=== PATIENT | male | born 1975 | race Caucasian/White ===

== ENCOUNTER 2020-02-28 10:04 | Outpatient (REF) | payer BC, SELFPAY ==
[2020-02-28 14:33] LABS: Alanine Aminotransferase 40 U/L (0-40); Albumin Level 4.6 g/dL (3.5-5.0); Alkaline Phosphatase 58 U/L (39-117); Anion Gap 11 (12-20); Aspartate Amino Transferase 29 U/L (5-37); Bilirubin Total 0.6 mg/dL (0.0-1.0); Blood Urea Nitrogen 18 mg/dL (9-16); Calcium 9.2 mg/dL (8.4-10.2); Carbon Dioxide 30 mmol/L (22-29); Chloride 101 mmol/L (96-108); Cholesterol 227 mg/dL; Estimated Glomerular Filt Rate > 60; Glucose Fasting 96 mg/dL (60-99); HDL Cholesterol 41 mg/dL; LDL Cholesterol Calculated 170 mg/dl; Potassium 4.3 mmol/l (3.3-5.1); Sodium 138 mmol/L (135-145); Total Protein 6.9 g/dL (6.5-8.0); Triglycerides 84 mg/dL
== END 2020-02-28 10:05 | disposition home or self-care (01) ==
LOC: HO.10HDL 10:04
PROVIDERS: Visit Provider Family Medicine
DX: Z00.00 Encounter for general adult medical examination without abnormal findings (principal); E78.5 Hyperlipidemia, unspecified
CPT/HCPCS: 36415; 80053; 80061

== ENCOUNTER 2020-03-14 14:19 | Outpatient (REF) | payer BC, SELFPAY ==
[2020-03-14 15:20] LABS: Creatinine Urine 113.58 mg/dL; Microalbumin Urine < 5.0 mg/L
== END 2020-03-14 14:20 | disposition home or self-care (01) ==
LOC: HO.LNP 14:19
PROVIDERS: Visit Provider Family Medicine
DX: R73.03 Prediabetes (principal)
CPT/HCPCS: 82043

== ENCOUNTER 2020-11-30 10:59 | Outpatient (REF) | payer BC, SELFPAY ==
[2020-11-30 11:51] LABS: Alanine Aminotransferase 28 U/L (0-40); Albumin Level 4.5 g/dL (3.5-5.0); Alkaline Phosphatase 51 U/L (39-117); Anion Gap 11 (12-20); Aspartate Amino Transferase 27 U/L (5-37); Bilirubin Total 0.7 mg/dL (0.0-1.0); Blood Urea Nitrogen 12 mg/dL (9-16); Calcium 9.6 mg/dL (8.4-10.2); Carbon Dioxide 28 mmol/L (22-29); Chloride 103 mmol/L (96-108); Cholesterol 224 mg/dL; Estimated Glomerular Filt Rate > 60; Glucose Fasting 103 mg/dL (60-99); HDL Cholesterol 35 mg/dL; LDL Cholesterol Calculated 165 mg/dl; Potassium 4.6 mmol/L (3.3-5.1); Sodium 137 mmol/L (135-145); Total Protein 6.9 g/dL (6.5-8.0); Triglycerides 120 mg/dL
== END 2020-11-30 11:00 | disposition home or self-care (01) ==
LOC: HO.LAB 10:59
PROVIDERS: PCP Family Medicine; Visit Provider Family Medicine
DX: Z00.00 Encounter for general adult medical examination without abnormal findings (principal); E78.5 Hyperlipidemia, unspecified; R73.03 Prediabetes
CPT/HCPCS: 36415; 80053; 80061

== ENCOUNTER 2020-12-04 11:19 | Outpatient (REF) | payer BC, SELFPAY | END 2020-12-04 11:20 | disposition home or self-care (01) | LOC: HO.LAB 11:19 | PROVIDERS: Visit Provider Family Medicine | DX: Z13.89 Encounter for screening for other disorder (principal) ==

== ENCOUNTER 2021-03-04 08:59 | Outpatient (REF) | payer BC, SELFPAY ==
[2021-03-04 10:51] LABS: Estimated Average Glucose 120 mg/dL; Hemoglobin A1c % 5.8 %
[2021-03-04 10:59] LABS: Alanine Aminotransferase 32 U/L (0-40); Albumin Level 4.3 g/dL (3.5-5.0); Alkaline Phosphatase 66 U/L (39-117); Anion Gap 9 (12-20); Aspartate Amino Transferase 26 U/L (5-37); Bilirubin Total 0.8 mg/dL (0.0-1.0); Blood Urea Nitrogen 18 mg/dL (9-16); Calcium 9.9 mg/dL (8.4-10.2); Carbon Dioxide 29 mmol/L (22-29); Chloride 104 mmol/L (96-108); Cholesterol 126 mg/dL; Estimated Glomerular Filt Rate > 60; Glucose Fasting 112 mg/dL (60-99); HDL Cholesterol 38 mg/dL; LDL Cholesterol Calculated 80 mg/dl; Potassium 4.2 mmol/L (3.3-5.1); Sodium 138 mmol/L (135-145); Total Protein 6.9 g/dL (6.5-8.0); Triglycerides 41 mg/dL
[2021-03-04 11:19] LABS: Prostate Specific Antigen Scr 0.38 ng/mL (<0.05-4.0)
== END 2021-03-04 09:00 | disposition home or self-care (01) ==
LOC: HO.10HDL 08:59
PROVIDERS: Visit Provider Family Medicine
DX: Z00.00 Encounter for general adult medical examination without abnormal findings (principal); Z12.5 Encounter for screening for malignant neoplasm of prostate; R73.01 Impaired fasting glucose; R73.03 Prediabetes
CPT/HCPCS: 36415; 80053; 80061; 83036; 84153

== ENCOUNTER 2022-09-01 06:12 | Outpatient (REF) | payer OTHER, SELFPAY ==
[2022-09-01 07:27] LABS: Estimated Average Glucose 114 mg/dL; Hemoglobin A1c % 5.6 %
[2022-09-01 08:17] LABS: Alanine Aminotransferase 37 U/L (0-40); Albumin Level 4.4 g/dL (3.5-5.0); Alkaline Phosphatase 60 U/L (39-117); Anion Gap 14 (12-20); Aspartate Amino Transferase 29 U/L (5-37); Bilirubin Total 0.6 mg/dL (0.0-1.0); Blood Urea Nitrogen 14 mg/dL (9-16); Calcium 10.4 mg/dL (8.4-10.2); Carbon Dioxide 26 mmol/L (22-29); Chloride 103 mmol/L (96-108); Cholesterol 228 mg/dL; Estimated Glomerular Filt Rate > 60; Glucose Fasting 107 mg/dL (60-99); HDL Cholesterol 41 mg/dL; LDL Cholesterol Calculated 129 mg/dl; Potassium 4.3 mmol/L (3.3-5.1); Sodium 139 mmol/L (135-145); Total Protein 7.2 g/dL (6.5-8.0); Triglycerides 292 mg/dL
[2022-09-01 08:24] LABS: Prostate Specific Antigen Scr 0.53 ng/mL (<0.05-4.0)
[2022-09-01 08:34] LABS: TSH reflex Free T4 5.61 uIU/mL (0.32-4.0)
[2022-09-01 09:09] LABS: Free T4 (Free Thyroxine) 0.72 ng/dL (0.71-1.85)
[2022-09-01 09:13] LABS: Appearance Urine Clear; Color Urine Yellow; Glucose Urine UA Negative (Negative); Leukocyte Esterase Urine Negative (Negative); Nitrite Urine Negative (Negative); Urine Blood Negative (Negative); Urine Ketones Negative (Negative); Urine Protein Negative (Neg-Trace)
[2022-09-01 09:54] LABS: Creatinine Urine 171.66 mg/dL; Microalbum/Creatinine Ratio Ur 4.6 ug/mg cr
== END 2022-09-01 06:13 | disposition home or self-care (01) ==
LOC: HO.LAB 06:12
PROVIDERS: PCP Family Medicine; Visit Provider Family Medicine
DX: Z00.00 Encounter for general adult medical examination without abnormal findings (principal); Z12.5 Encounter for screening for malignant neoplasm of prostate; I10 Essential (primary) hypertension; R73.01 Impaired fasting glucose
CPT/HCPCS: 36415; 80053; 80061; 81003; 82043; 83036; 84153; 84439; 84443

== ENCOUNTER 2022-09-03 16:36 | Outpatient (AMB) | payer OTHER, SELFPAY ==
--- NOTE | 2022-09-03 16:31 | A.OFFPC_ITS ---
Intake Visit Reasons: f/u [facility]/[phone] Intake Note: Patient is following on blood work today. Allergies No Known Allergies Allergy (Verified 09/03/22 16:32) Tobacco use date assessed: 09/03/22 Dental Screening Dental Screen Date: 09/03/22 Did you have a dental visit in the last 12 months?: Yes Did you have a dental problem in the last 6 months where you did not have access to dental care?: No Was dental information given to patient?: No HPI f/u [facility]/[phone] HPI Details 47 y/o male presents to f/u [facility] via telemedicine. Labs were drawn 09/01/22. Reviewed labs with pt. Triglycerides 292. TC 228. LDL 128. HDL 41. He is on artovastatin 20mg daily. TSH elevated at 5.61. A1c 5.6%. Elevated calcium. 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 Dario Penn, Aniya Montero, Shelton Love and colleagues, with an educational nitesh from [employer]. Review of Systems Const Denies chills, Denies fatigue, Denies fever(s), Denies headache(s) and Denies weakness ENT Denies dizziness and Denies headache(s) Card Denies dyspnea Resp Denies cough, Denies dyspnea, Denies wheezing and Denies other (shortness of breath) Musc Denies numbness and Denies tingling Neuro Denies dizziness, Denies headache(s), Denies numbness, Denies tingling and Denies weakness Psych Denies anxiety and Denies depression Endo Denies fatigue Aller/Immun Denies wheezing Physical exam (Primary Care) Tobacco/Smoking Status: Tobacco use Status Tobacco use date assessed 09/03/22 09/03/22 16:35 Patient Tobacco Use Status Never used Tobacco 09/03/22 16:35 e-Cigarette/Vaping Use Never Used 09/03/22 16:35 Thrive Assessment: Date of Thrive Assessment Date Thrive assessed 12/04/20 09/03/22 16:35 Telehealth Telehealth Location of provider rendering services: practice address Location of patient: other Patient Identification confirmed using: Name, : Yes Telehealth method: voice only Patient verbally consented to treatment: Yes Patient verbally consented to billing insurance company: Yes Patient informed of any privacy concerns related to visit: Yes Minutes spent on Phone/Video with Pt.: 9 Assessment and Plan Assessment & Plan (1) Hyperlipidemia: Code(s): E78.5 - Hyperlipidemia, unspecified Plan: Had decreased his atorvastatin but HDL low and LDL has increased significantly with elevated triglycerides as well Concomitantly, his thyroid hormone levels appear off Patient notes that his diet has been rather poor lately He will repeat his lipids in 6 weeks while he works on lifestyle changes (2) Prediabetes: Code(s): R73.03 - Prediabetes Plan: A1c 5.5% which is still near top normal range He will continue to work on lifestyle changes (3) Elevated TSH: Code(s): R79.89 - Other specified abnormal findings of blood chemistry Plan: TSH is high Will repeat this in about 6 weeks (4) Hypercalcemia: Code(s): E83.52 - Hypercalcemia Plan: Mildly elevated and will repeat Orders: Orders Basic Metabolic Panel Fasting Today E78.5 - Hyperlipidemia, unspecified Lipid Panel Today E78.5 - Hyperlipidemia, unspecified, Z00.00 - Encounter for general adult medical examination without abnormal findings Triiodothyronine T3 Total Today E03.9 - Hypothyroidism, unspecified, R79.89 - Other specified abnormal findings of blood chemistry Free T4 (Free Thyroxine) Today E03.9 - Hypothyroidism, unspecified, R79.89 - Other specified abnormal findings of blood chemistry Thyroid Stimulating Hormone Today E03.9 - Hypothyroidism, unspecified, R79.89 - Other specified abnormal findings of blood chemistry Coding Level of Care Code Tele Est Pt Level 2 (82936) Diagnoses Hyperlipidemia E78.5 Prediabetes R73.03 Elevated TSH R79.89 Hypercalcemia E83.52
== END 2022-09-03 16:45 | disposition home or self-care (01) ==
LOC: HO.HMGFM 16:36
PROVIDERS: PCP Family Medicine; Visit Provider Family Medicine
DX: E78.5 Hyperlipidemia, unspecified (principal); R73.03 Prediabetes; R79.89 Other specified abnormal findings of blood chemistry; E83.52 Hypercalcemia
CPT/HCPCS: 99441

== ENCOUNTER 2024-05-15 08:52 | Outpatient (AMB) | payer BC, SELFPAY ==
--- NOTE | 2024-05-15 09:17 | A.OFFPC_ITS ---
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 Reports intermittent blood in stools - a few times a week. Denies any black, tarry stools. He notes sometimes entire toilet paper is red. Blood more often on toilet paper than bowl. He notes symptoms have been ongoing for months. 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 1. Little interest or pleasure in doing things: not at all 2. Feeling down, depressed, or hopeless: not at all 3. Trouble falling or staying asleep, or sleeping too much: not at all 4. Feeling tired or having little energy: not at all 5. Poor appetite or overeating: not at all 6. Feeling bad about yourself - or that you are a failure or have let yourself or your family down: not at all 7. Trouble concentrating on things, such as reading the newspaper or watching television: not at all 8. Moving or speaking so slowly that other people could have noticed. Or the opposite - being so fidgety or restless that you have been moving around a lot more than usual: not at all 9. Thoughts that you would be better off or of hurting yourself in some way: not at all Total score: 0 Depression Screening Interpretation: Negative Depression Screening Done: Yes 27735 - PHQ-9 Billing: Yes Source: Developed by Drs. Dario Penn, Aniya Montero, Shelton Love and colleagues, with an educational nitesh from [employer]. Thrive Questionnaire Date Thrive assessed: 05/15/24 I am a: Patient What is your living situation today?: I have a steady place to live Within the past 12 months, did the food you bought not last and you didn't have the money to get more?: Never true Within the past 12 months, did you worry whether your food would run out before you got money to buy more?: Never true Do you have trouble paying for medicines?: No Do you have trouble getting transportation to medical appointments?: No Do you have trouble paying your heating and electricity bill?: No Do you have trouble taking care of your child, family member or friend?: No Do you have trouble with day-to-day activities such as bathing, preparing meals, shopping, managing finances, etc.?: No Are you currently unemployed and looking for a job?: No Are you interested in more education?: No Please select the resources that you would like help with: None Currently or been in a relationship where the following occur: No concerns reported THRIVE Score: 0 AUDIT C Alcohol Use Questionnaire (AUDIT-C) 1. How often do you have a drink containing alcohol?: 2-4 times a month 2. How many drinks containing alcohol do you have on a typical day when you are drinking?: 1 or 2 3. How often do you have six or more drinks on one occasion?: Never Total Score: 2 Score Reviewed/Action Taken: Yes ANTHONY-7 AMB Questionnaire ANTHONY-7 Date ANTHONY - 7 assessed: 05/15/24 Feeling nervous, anxious, or on edge: 0 = Not at all Not being able to stop or control worryin = Not at all Worrying too much about different things: 0 = Not at all Trouble relaxin = Not at all Being so restless that it is hard to sit still: 0 = Not at all Becoming easily annoyed or irritable: 0 = Not at all Feeling afraid as if something awful might happen: 0 = Not at all Total ANTHONY-7 score (0-4 normal; 5-9 mild; 10-14 moderate; 15-21 severe): 0 Source: Developed by Drs. Dario Penn, Aniya Montero, Shelton Love and colleagues, with an educational nitesh from [employer]. ANTHONY-7 Assessment Billing ANTHONY-7 Assessment Tool: ANTHONY-7 Assessment 41073 Review of Systems Const Denies chills, Denies fatigue, Denies fever(s), Denies headache(s) and Denies weakness ENT Denies dizziness and Denies headache(s) Card Denies dyspnea Resp Denies cough, Denies dyspnea, Denies wheezing and Denies other (shortness of breath) Musc Denies numbness and Denies tingling Neuro Denies dizziness, Denies headache(s), Denies numbness, Denies tingling and Denies weakness Psych Denies anxiety and Denies depression Endo Denies fatigue Aller/Immun Denies wheezing Physical exam (Primary Care) Vital Signs: Last Vital Signs Temp 98.0 F 05/15/24 09:21 Pulse 69 05/15/24 09:21 Resp 12 05/15/24 09:21 BP 134/78 05/15/24 09:21 Pulse Ox 97 05/15/24 09:21 Oxygen Delivery Method Room Air 05/15/24 09:21 BMI result Body Mass Index 25.6 Tobacco/Smoking Status: Tobacco use Status Tobacco use date assessed 05/15/24 05/15/24 09:24 Patient Tobacco Use Status Never used Tobacco 05/15/24 09:24 e-Cigarette/Vaping Use Never Used 05/15/24 09:24 PHQ-9: PHQ-9 Score PHQ-9: Total score 0 05/15/24 09:24 Depression Screening Interpretation: Negative Thrive Assessment: Date of Thrive Assessment Date Thrive assessed 05/15/24 05/15/24 09:24 Currently or been in a relationship where the following occur: No concerns reported Const General: well developed; No acute distress Nutritional Appearance: well nourished Orientation/consciousness: patient oriented x3 HENMT Head: Yes normocephalic and Yes atraumatic Eyes General: appearance normal, both eyes and all related structures Pupils: Equal, round and reactive pupils present EOM: EOMs intact bilaterally Resp Effort & Inspection: normal respiratory effort Neuro General: patient oriented x3 and gait normal Cranial nerves: Yes Equal, round and reactive pupils present Psych Affect: normal affect Coding Level of Care Code Est Pt Level 3 (29028) Diagnoses Blood in stool K92.1 Hemorrhoid K64.9 Additional Codes ANTHONY-7 Assessment Billing - ANTHONY-7 Assessment Tool: ANTHONY-7 Assessment 96801 ([id number]) PHQ-9 - 93541 - PHQ-9 Billing: Yes ([id number]) Assessment & Plan Assessment & Plan (1) Blood in stool: Code(s): K92.1 - Melena Category: Medical Plan: Patient?has?large,?1?cm?hemorrhoid?with?exploration?and?some?blood This?is?the?likely?underlying?cause?of?his blood?in?stool?however?can?not?rule?out?other?causes?as?this?has?been?going ?on?for?quite?some?time. Referred?to?Gastroenterology?at?patient?request Keep?stools?soft Hydrate?well?and?use?MiraLax. (2) Hemorrhoid: Code(s): K64.9 - Unspecified hemorrhoids Category: Medical Plan: As?above Orders: Referrals Gastroenterology Referral K92.1 - Melena Medications: New polyethylene glycol 3350 (Miralax) 17 grams PO DAILY 30 days 510 grams 1RF
[2024-05-15 09:21] VITALS: BP 134/78; PULSE 69; RESP 12; TEMP 36.7; O2SAT 97; BMI 25.6
== END 2024-05-15 10:06 | disposition home or self-care (01) ==
LOC: HO.HMCFM 08:54
PROVIDERS: PCP Family Medicine; Visit Provider Family Medicine
DX: K92.1 Melena (principal); K64.9 Unspecified hemorrhoids

== ENCOUNTER → 2024-05-15 08:52 | Outpatient (BNVA) | payer BC, SELFPAY | PROVIDERS: PCP Family Medicine; Visit Provider Family Medicine | DX: K92.1 Melena (principal); K64.9 Unspecified hemorrhoids | CPT/HCPCS: 96127 ==

== ENCOUNTER 2024-06-07 11:45 | Outpatient (AMB) | payer BC, SELFPAY ==
--- NOTE | 2024-06-07 11:55 | MHC.PC.OV ---
Vital Signs 06/07/24 12:02 Height 5 ft 9 in Weight 174 lb BMI 25.7 BP 132/72 Blood Pressure Location Rt brachial Position Sitting Respiration 13 Pulse 71 Pulse Source Pulse Oximeter Temp 97.8 F Temp Source Oral Pulse Oximetry (%) 97 Oxygen Delivery Method Room Air Intake Visit Reasons: CPE - Dr. Dangelo pt. Intake Note: CPE. Patient is also concern about blood in the stool since December. 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 Required: No Allergies No Known Allergies Allergy (Verified 06/07/24 12:14) Medication List - Last Reconciled 06/07/24 by Beverly Cassidy, HEAVY REPAIRER- albuterol sulfate 90 mcg/actuation 2 puffs PO Q6H PRN 30 days atorvastatin 20 mg PO BEDTIME 90 days flu vac [id number] 36mos up(PF) mL IM montelukast 10 mg PO DAILY 90 days polyethylene glycol 3350 (Miralax) 17 grams PO DAILY 30 days Tobacco use date assessed: 06/07/24 Dental Screening Dental Screen Date: 06/07/24 Did you have a dental visit in the last 12 months?: Yes Did you have a dental problem in the last 6 months where you did not have access to dental care?: No Was dental information given to patient?: Patient has dentist HPI HPI Comments History of Present Illness Details 48 y/o M with prediabetes, HLD, bleeding hemorrhoids, allergy induced asthma, family hx of melanoma (Dad), family hx prostate ca(Dad), nevus L Iris Surgery:None Family hx: Dad melanoma, Mom of common bile duct ca age 65, Sister age 44 d/t etoh Social: 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 Son age 7. Health Maintenance Tdap 2016 Flu UTD Colon referred, [place] app[place] [facility]ants [place] be seen sooner Specialist GI Derm annual skin checks Dentist Optho annual visits, Fall 2023; has new MD in [place] ([facility] Ioana Wilde) nevus on [facility] - no changes. Visit every other year. No changes (Dr Proctor) Here today for CPE Patient of Dr Radhika Garcia records reviewed Cont to have rectal bleeding; Recommend him to call other GI and let us know who is taking patients sooner than [facility] [place] and we can update the referral. He reports BRB on paper and in toilet but can have tarry sticky stuff in stool, too. This has been present for 5 months. Reports change in BM from QD to TID. Prediabetes 5.8% done in office today. Admits poor diet and physical activity. TSH - elevated on the past; not on meds; subclinical, Update labs today HLD atorvastatin, taking 6/7 days per week. Allergy induced asthma well controlled w/ prn keaton and montelukast R Thumb - texting thumb over the winter it self resolved No issues at this time. ROS: Constitutional: Denies fever. Skin: Denies rash. Eye: Denies eye pain. ENMT: Denies sore throat and nasal congestion. Respiratory: Denies shortness of breath and cough. Gastrointestinal: Denies nausea, vomiting or abdominal pain. Cardiovascular: Denies chest pain and syncope. Genitourinary: Denies dysuria. Musculoskeletal: Denies back pain and extremity pain. Neurologic: Denies headaches, confusion, and weakness. Psychiatric: Denies suicidal thoughts and substance abuse. Allergy/ Immunologic: Denies impaired immunity. Exam: General: Well developed, well nourished, in no acute distress. Appears stated age. Head: Normocephalic, atraumatic. Eyes: Pupils are equal, round and reactive to light and accommodation. Conjunctivae are clear. Vision grossly normal. Ears: Cerumen impaction bilat unable to see tympanic membrane Nose: Patent, without discharge. Mouth: There are no ulcers or lesions noted. No inflammation, no post nasal drip, no plaques nor exudates. Neck: Supple, no adenopathy or thyromegaly. Lungs: Clear to auscultation bilaterally. No rales, rhonchi or wheeze noted. Good air flow in all mo. Heart: Regular rate and rhythm. No murmurs, click, rubs or gallops are noted. Abdomen: Bowel sounds present in all quadrants. The abdomen is soft, nontender, with no masses or organomegaly noted. No hernias are noted. Musculoskeletal: Joints are nontender, without swelling, redness, or effusions. Range of motion is observed to be normal. Pulses: Peripheral pulses are equal and palpable bilaterally. Extremities: No clubbing, cyanosis nor edema is noted. Neurologic: Gait and station normal. Cranial Nerves 2-12 intact. Motor strength grossly symmetrical and intact. No sensory loss. Balance normal. Skin: No rashes, ulcers, or lesions noted. Turgor is good. Skin color is good. Hair and nails are without abnormalities. Psych: Normal eye contact, affect and mood appropriate, and normal interactions. Patient is alert and appropriate to context. Plan: I offered to perform an ear lavage today in the office however the patient left before this was completed. A message will be sent to him by the medical microbiologist staff to return to the office should he want to pursue this. A refill on his montelukast and albuterol has been sent to the pharmacy. He will be due for a refill on his statin however I want to wait until lipid panel results are back before sending this to be sure that he was on the appropriate dose. He does need to follow up on this rectal bleeding that has been ongoing for 5 months. I have told him to call his insurance company and see which Gastroenterology groups are accepted outside of [facility], call and get the soonest appointment and then send a message on the portal so that I can update a referral to an outside source should this be required. Otherwise he can follow up with [facility] as scheduled. We will proceed with fecal occult blood testing and some labs. Recommended routine follow up with his primary care provider in 6 months for hyperlipidemia and prediabetes. An additional 30 minutes was spent addressing the problem(s) noted at todays visit. This includes time spent before the visit reviewing the chart, time spent during the visit, and time spent after the visit on documentation reviewing laboratory results, diagnostic imaging, medications, performing a medically necessary evaluation, counseling on diagnoses, care coordination, ordering appropriate tests, ordering appropriate medications, review of tests performed by other providers, reporting test results with the patient, communication with other healthcare providers. 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 1. Little interest or pleasure in doing things: not at all 2. Feeling down, depressed, or hopeless: not at all 3. Trouble falling or staying asleep, or sleeping too much: not at all 4. Feeling tired or having little energy: not at all 5. Poor appetite or overeating: not at all 6. Feeling bad about yourself - or that you are a failure or have let yourself or your family down: not at all 7. Trouble concentrating on things, such as reading the newspaper or watching television: not at all 8. Moving or speaking so slowly that other people could have noticed. Or the opposite - being so fidgety or restless that you have been moving around a lot more than usual: not at all 9. Thoughts that you would be better off or of hurting yourself in some way: not at all Total score: 0 Depression Screening Interpretation: Negative Depression Screening Done: Yes 45587 - PHQ-9 Billing: Yes Source: Developed by Drs. Dario Penn, Aniya Montero, Shelton Love and colleagues, with an educational nitesh from [employer]. Thrive Questionnaire Date Thrive assessed: 06/07/24 I am a: Patient What is your living situation today?: I have a steady place to live Within the past 12 months, did the food you bought not last and you didn't have the money to get more?: Never true Within the past 12 months, did you worry whether your food would run out before you got money to buy more?: Never true Do you have trouble paying for medicines?: No Do you have trouble getting transportation to medical appointments?: No Do you have trouble paying your heating and electricity bill?: No Do you have trouble taking care of your child, family member or friend?: No Do you have trouble with day-to-day activities such as bathing, preparing meals, shopping, managing finances, etc.?: No Are you currently unemployed and looking for a job?: No Are you interested in more education?: No Please select the resources that you would like help with: None Currently or been in a relationship where the following occur: No concerns reported THRIVE Score: 0 AUDIT C Alcohol Use Questionnaire (AUDIT-C) 1. How often do you have a drink containing alcohol?: Never 3. How often do you have six or more drinks on one occasion?: Never Total Score: 0 Score Reviewed/Action Taken: Yes ANTHONY-7 AMB Questionnaire ANTHONY-7 Date ANTHONY - 7 assessed: 06/07/24 Feeling nervous, anxious, or on edge: 0 = Not at all Not being able to stop or control worryin = Not at all Worrying too much about different things: 0 = Not at all Trouble relaxin = Not at all Being so restless that it is hard to sit still: 0 = Not at all Becoming easily annoyed or irritable: 0 = Not at all Feeling afraid as if something awful might happen: 0 = Not at all Total ANTHONY-7 score (0-4 normal; 5-9 mild; 10-14 moderate; 15-21 severe): 0 Source: Developed by Drs. Dario Penn, Aniya Montero, Shelton Love and colleagues, with an educational nitesh from [employer]. ANTHONY-7 Assessment Billing ANTHONY-7 Assessment Tool: ANTHONY-7 Assessment 79157 Physical exam (Primary Care) Vital Signs: Last Vital Signs Temp 97.8 F 06/07/24 12:02 Pulse 71 06/07/24 12:02 Resp 13 06/07/24 12:02 BP 132/72 06/07/24 12:02 Pulse Ox 97 06/07/24 12:02 Oxygen Delivery Method Room Air 06/07/24 12:02 BMI result Body Mass Index 25.7 Tobacco/Smoking Status: Tobacco use Status Tobacco use date assessed 06/07/24 06/07/24 11:59 Patient Tobacco Use Status Never used Tobacco 06/07/24 11:59 e-Cigarette/Vaping Use Never Used 06/07/24 11:59 PHQ-9: PHQ-9 Score PHQ-9: Total score 0 06/07/24 12:17 Depression Screening Interpretation: Negative Thrive Assessment: Date of Thrive Assessment Date Thrive assessed 06/07/24 06/07/24 11:59 Currently or been in a relationship where the following occur: No concerns reported Results AMB Hemoglobin A1c AMB Hemoglobin A1c 5.8 % Last Edit by Milly Wyman MA on 06/07/24 12:17 Results Reviewed Results Reviewed: Laboratory Last Values Hgb A1c (Clinic) 5.8 % (4.0-6.0) 06/07/24 12:14 Coding Level of Care Code Est Pt Level 4 (94702) Est Pt Prev Care 40-64y(51357) Diagnoses Encounter for general adult medical examination with abnormal findings Z00.01 Prediabetes R73.03 Mixed hyperlipidemia E78.2 Hyperlipidemia type: mixed hyperlipidemia Low HDL (under 40) E78.6 Elevated TSH R79.89 Blood in stool K92.1 Hemorrhoids, unspecified hemorrhoid type K64.9 Hemorrhoid type: unspecified Screening for colon cancer Z12.11 Mild intermittent extrinsic asthma without complication J45.20 Asthma severity: mild Asthma persistence: intermittent Asthma complication type: uncomplicated Environmental allergies Z91.09 Family history of melanoma Z80.8 Family history of prostate cancer in father Z80.42 Nevus of iris of left eye D31.42 Impacted cerumen of both ears H61.23 Additional Codes ANTHONY-7 Assessment Billing - ANTHONY-7 Assessment Tool: ANTHONY-7 Assessment 10703 ([id number]) PHQ-9 - 46769 - PHQ-9 Billing: Yes ([id number]) Assessment & Plan Assessment & Plan (1) Encounter for general adult medical examination with abnormal findings: Code(s): Z00.01 - Encounter for general adult medical examination with abnormal findings (2) Prediabetes: Code(s): R73.03 - Prediabetes Category: Medical (3) Hyperlipidemia: Code(s): E78.5 - Hyperlipidemia, unspecified Category: Medical Qualifiers: Hyperlipidemia type: mixed hyperlipidemia Qualified Code(s): E78.2 - Mixed hyperlipidemia (4) Low HDL (under 40): Code(s): E78.6 - Lipoprotein deficiency Category: Medical (5) Elevated TSH: Code(s): R79.89 - Other specified abnormal findings of blood chemistry Category: Medical (6) Blood in stool: Code(s): K92.1 - Melena Category: Medical (7) Hemorrhoid: Code(s): K64.9 - Unspecified hemorrhoids Category: Medical Qualifiers: Hemorrhoid type: unspecified Qualified Code(s): K64.9 - Unspecified hemorrhoids (8) Screening for colon cancer: Code(s): Z12.11 - Encounter for screening for malignant neoplasm of colon Category: Medical (9) Allergy-induced asthma: Code(s): J45.909 - Unspecified asthma, uncomplicated Category: Medical Qualifiers: Asthma severity: mild Asthma persistence: intermittent Asthma complication type: uncomplicated Qualified Code(s): J45.20 - Mild intermittent asthma, uncomplicated (10) Environmental allergies: Code(s): Z91.09 - Other allergy status, other than to drugs and biological substances Category: Medical (11) Family history of melanoma: Comment: dad Code(s): Z80.8 - Family history of malignant neoplasm of other organs or systems Category: Medical (12) Family history of prostate cancer in father: Code(s): Z80.42 - Family history of malignant neoplasm of prostate Category: Medical (13) Nevus of iris of left eye: Code(s): D31.42 - Benign neoplasm of left ciliary body Category: Medical (14) Impacted cerumen of both ears: Code(s): H61.23 - Impacted cerumen, bilateral Category: Medical Plan . Orders: Orders AMB Hemoglobin A1c Today R73.03 - Prediabetes, Z13.9 - Encounter for screening, unspecified Complete Blood Count no Diff Today E78.5 - Hyperlipidemia, unspecified, E78.6 - Lipoprotein deficiency, R73.03 - Prediabetes, R79.89 - Other specified abnormal findings of blood chemistry Comprehensive Met. Panel Today E78.5 - Hyperlipidemia, unspecified, E78.6 - Lipoprotein deficiency, R73.03 - Prediabetes, R79.89 - Other specified abnormal findings of blood chemistry Ferritin Today E78.5 - Hyperlipidemia, unspecified, E78.6 - Lipoprotein deficiency, R73.03 - Prediabetes, R79.89 - Other specified abnormal findings of blood chemistry Lipid Panel Today E78.5 - Hyperlipidemia, unspecified, E78.6 - Lipoprotein deficiency, R73.03 - Prediabetes, R79.89 - Other specified abnormal findings of blood chemistry TSH reflex Free T4 Today E78.5 - Hyperlipidemia, unspecified, E78.6 - Lipoprotein deficiency, R73.03 - Prediabetes, R79.89 - Other specified abnormal findings of blood chemistry AMB Stool Occult Bld x3 gFOBT Today Z12.11 - Encounter for screening for malignant neoplasm of colon, Z12.12 - Encounter for screening for malignant neoplasm of rectum IRON PROFILE Today E78.5 - Hyperlipidemia, unspecified, E78.6 - Lipoprotein deficiency, R73.03 - Prediabetes, R79.89 - Other specified abnormal findings of blood chemistry Microalbumin, Random (w Creat) Today E78.5 - Hyperlipidemia, unspecified, E78.6 - Lipoprotein deficiency, R73.03 - Prediabetes, R79.89 - Other specified abnormal findings of blood chemistry PSA, Ultra Sensitive Today E78.5 - Hyperlipidemia, unspecified, E78.6 - Lipoprotein deficiency, R73.03 - Prediabetes, R79.89 - Other specified abnormal findings of blood chemistry Vitamin B12 and Folate Today E78.5 - Hyperlipidemia, unspecified, E78.6 - Lipoprotein deficiency, R73.03 - Prediabetes, R79.89 - Other specified abnormal findings of blood chemistry Vitamin D 25-OH Total Today E78.5 - Hyperlipidemia, unspecified, E78.6 - Lipoprotein deficiency, R73.03 - Prediabetes, R79.89 - Other specified abnormal findings of blood chemistry Medications: Refilled albuterol sulfate 90 mcg/actuation 2 puffs PO Q6H PRN 8.5 grams 3RF shortness of breath or wheezing 30 days K92.1 - Melena montelukast 10 mg PO DAILY 90 tabs 3RF 90 days Discontinued polyethylene glycol 3350 (Miralax) Discontinued Reason: Patient no longer taking 17 grams PO DAILY 30 days 510 grams 1RF Patient Instructions: Health screenings for men You should visit your health care provider regularly, even if you feel healthy. The purpose of these visits is to: Screen for medical issues Assess your risk for future medical problems Encourage a healthy lifestyle Update vaccinations and other preventive care services Help you get to know your provider in case of an illness Information Even if you feel fine, you should still see your provider for regular checkups. These visits can help you avoid problems in the future. For example, the only way to find out if you have high blood pressure is to have it checked regularly. High blood sugar and high cholesterol level also may not have any symptoms in the early stages. Simple blood tests can check for these conditions. There are specific times when you should see your provider or receive specific health screenings. The [place] Preventive Services Task Force publishes a list of recommended screenings. Below are screening guidelines for men ages 40 to 64. BLOOD PRESSURE SCREENING Have your blood pressure checked at least once every year. Watch for blood pressure screenings in your area. Ask your provider if you can stop in to have your blood pressure checked. Ask your provider if you need your blood pressure checked more often if: You have diabetes, heart disease, kidney problems, or are overweight or have certain other health conditions You have a first-degree relative with high blood pressure You are Black Your blood pressure top number is from 120 to 129 mm Hg, or the bottom number is from 70 to 79 mm Hg If the top number is 130 mm Hg or greater or the bottom number is 80 mm Hg or greater, this is considered stage 1 hypertension. Schedule an appointment with your provider to learn how you can lower your blood pressure. Effects of age on blood pressure CHOLESTEROL SCREENING Cholesterol screening should begin at age 35 for men with no known risk factors for coronary heart disease. Repeat cholesterol screening should take place: Every 5 years for men with normal cholesterol levels More often if changes occur in lifestyle (including weight gain and diet) More often if you have diabetes, heart disease, kidney problems, or certain other conditions COLORECTAL CANCER SCREENING If you are under age 45, talk to your provider about getting screened. You may need to be screened if you have a strong family history of colon cancer or polyps. Screening may also be considered if you have risk factors such as a history of inflammatory bowel disease or polyps. If you are age 45 to 75, you should be screened for colorectal cancer. There are several screening tests available: A stool-based fecal occult blood (gFOBT) or fecal immunochemical test (FIT) every year A stool sDNA test every 1 to 3 years Flexible sigmoidoscopy every 5 years or every 10 years with stool testing FIT done every year CT colonography (virtual colonoscopy) every 5 years Colonoscopy every 10 years You may need a colonoscopy more often if you have risk factors for colorectal cancer, such as: Ulcerative colitis A personal or family history of colorectal cancer A history of growths in your colon called adenomatous polyps DENTAL EXAM Go to the dentist once or twice every year for an exam and cleaning. Your dentist will evaluate if you have a need for more frequent visits. DIABETES SCREENING All adults who do not have risk factors for diabetes should be screened starting at age 35 and repeated every 3 years. If you have other risk factors for diabetes, such as a first degree relative with diabetes, overweight or obesity, high blood pressure, prediabetes, or a history of heart disease, you may be tested more often. If you are overweight and have other risk factors, such as high blood pressure and are planning to become , screening is recommended. EYE EXAM Have an eye exam every 2 to 4 years ages 40 to 54 and every 1 to 3 years ages 55 to 64. Your provider may recommend more frequent eye exams if you have vision problems or glaucoma risk. Have an eye exam that includes an examination of your retina (back of your eye) at least every year if you have diabetes. IMMUNIZATIONS Commonly needed vaccines include: Flu shot: get one every year COVID-19 vaccine: ask your provider what is best for you Tetanus-diphtheria and acellular pertussis (Tdap) vaccine: have as one of your tetanus-diphtheria vaccines if you did not receive it as an adolescent Tetanus-diphtheria: have a booster (or Tdap) every 10 years Varicella vaccine: receive 2 doses if you never had chickenpox or the varicella vaccine and were born in 1979 or after Hepatitis B vaccine: receive 2, 3, or 4 doses, depending on your exact circumstances, if you did not receive these as a child or adolescent, until age 59 Shingles (herpes zoster) vaccine: at or after age 50 Ask your provider if you should receive other immunizations, especially if you have certain medical conditions, such as diabetes or are at increased risk for some diseases such as pneumonia. INFECTIOUS DISEASE SCREENING Screening for hepatitis C: all adults ages 18 to 79 should get a one-time test for hepatitis C. Screening for human immunodeficiency virus (HIV): all people ages 15 to 65 should get a one-time test for HIV. Depending on your lifestyle and medical history, you may need to be screened for infections such as syphilis, chlamydia, and other infections. LUNG CANCER SCREENING You should have an annual screening for lung cancer with low-dose computed tomography (LDCT) if: You are age 50 to 80 years AND You have a 20 pack-year smoking history AND You currently smoke or have quit within the past 15 years OSTEOPOROSIS SCREENING If you are age 50 to 64 and have risk factors for osteoporosis, you should discuss screening with your provider. Risk factors can include long-term steroid use, low body weight, smoking, heavy alcohol use, having a fracture after age 50, or a family history of hip fracture or osteoporosis. Osteoporosis PHYSICAL EXAM All adults should visit their provider from time to time, even if they are healthy. The purpose of these visits is to: Screen for diseases Assess risk of future medical problems Encourage a healthy lifestyle Update vaccinations and other preventive care services Maintain a relationship with a provider in case of an illness Your height, weight, and body mass index (BMI) should be checked at every exam. During your exam, your provider may ask you about: Depression and anxiety Diet and exercise Alcohol and tobacco use Safety, such as use of seat belts and smoke detectors Your medicines and risk for interactions PROSTATE CANCER SCREENING If you're 55 through 69 years old, before having the test, talk to your provider about the pros and cons of having a PSA test. Ask about: Whether screening decreases your chance of dying from prostate cancer. Whether there is any harm from prostate cancer screening, such as side effects from testing or overtreatment of cancer when discovered. Whether you have a higher risk of prostate cancer than others. If you are age 55 or younger, screening is not generally recommended. You should talk with your provider about if you have a higher risk for prostate cancer. Risk factors include: Having a family history of prostate cancer (especially a brother or father) Being If you choose to be tested, the PSA blood test is repeated over time (yearly or less often), though the best frequency is not known. Prostate examinations are no longer routinely done on men with no symptoms. Prostate cancer SKIN EXAM Your provider may check your skin for signs of skin cancer, especially if you're at high risk. People at high risk include those who have had skin cancer before, have close relatives with skin cancer, or have a weakened immune system. TESTICULAR EXAM The [place] Preventive Services Task Force (USPSTF) now recommends against performing testicular self-exams. Doing testicular self-exams has been shown to have little to no benefit.
[2024-06-07 12:02] VITALS: BP 132/72; PULSE 71; RESP 13; TEMP 36.6; O2SAT 97; BMI 25.7
--- OUTSIDE RECORDS SUMMARY | 2024-06-07 14:15 | XMS_ITS | Clinical Summary ---
Author Organization [facility] Address [address] [place] [address] Care Team Providers Care Program Rep Name Role Phone Dorene Cardona Primary Care Provider [phone] Medications Medication Sig Dispensed Refills Start Date End Date Status albuterol (PROVENTIL HFA;VENTOLIN HFA) 108 (90 Base) MCG/ACT inhaler Inhale 2 puffs into the lungs every 6 (six) hours as needed for wheezing. 0 Active Active Problems Problem Noted Date Diagnosed Date Asthma Hypertriglyceridemia Elevated fasting blood sugar Immunizations Name Administration Dates Next Due Tdap 09/21/2016 Family History Medical History Relation Name Comments No Sig Med Hx Brother Cancer Father melanoma, prost ate Early Maternal Grandfather [place] Heart disease Maternal Grandfather Cancer Mother Common bile taran t Early Paternal Grandfather [place] Heart disease Paternal Grandfather Alcohol abuse Sister No Sig Med Hx Son Relation Name Status Comments Brother Alive Father Alive Maternal Grandfather Maternal Grandmother Mother Bile duct cance r Paternal Grandfather Paternal Grandmother Sister Son Alive Social History Tobacco Use Types Packs/Day Years Used Date Smoking Tobacco: Never Smokeless Tobacco: Never Alcohol Use Standard Drinks/Week Comments No 0 (1 standard drink = 0.6 oz pur e alcohol) Sex and Gender Information Value Date Recorded Sex Assigned at Not on file Gender Identity Not on file Sexual Orientation Not on file Last Filed Vital Signs Vital Sign Reading Time Taken Comments Blood Pressure 118/70 07/12/2017 1:50 PM EDT Pulse 70 07/12/2017 1:07 PM EDT Temperature 36.4 ??C (97.6 ??F) 07/12/2017 1:07 PM ED T Respiratory Rate 16 07/12/2017 1:07 PM EDT Oxygen Saturation 97% 07/12/2017 1:07 PM EDT Inhaled Oxygen Concentration - - Weight 75.8 kg (167 lb) 07/12/2017 1:07 PM EDT Height 175.3 cm (5' 9 ) 07/12/2017 1:07 PM EDT Body Mass Index 24.66 07/12/2017 1:07 PM EDT Plan of Treatment Health Maintenance Due Date Last Done Comments Hepatitis B Vaccines (1 of 3 - 3-dose series) 1975 Hepatitis C Screening 1975 COVID-19 Vaccine (#1) 01/10/1976 Depression Screening 07/12/2018 07/12/2017 Preventative Health Evaluation 07/12/2018 07/12/2017 Colon Cancer Screening (Colonoscopy) 07/09/2020 Influenza Vaccine (#1) 2023 DTap / Tdap / Td (2 - Td or Tdap) 09/21/2026 017 Pneumococcal Vaccine Aged Out No long er eligible based on patient's age to complete this topic RSV Ped < 20 months Aged Out No longe r eligible based on patient's age to complete this topic Care Teams Program Rep Relationship Specialty Start Date End Date Dorene Cardona DO PCP - General Family Medicine 05/12/17
== END 2024-06-07 13:09 | disposition home or self-care (01) ==
LOC: HO.HMCFM 11:46
PROVIDERS: PCP Family Medicine; Visit Provider Nurse Practitioner Family
DX: Z00.01 Encounter for general adult medical examination with abnormal findings (principal); R73.03 Prediabetes; E78.2 Mixed hyperlipidemia; E78.6 Lipoprotein deficiency; R79.89 Other specified abnormal findings of blood chemistry; K92.1 Melena; K64.9 Unspecified hemorrhoids; Z12.11 Encounter for screening for malignant neoplasm of colon; J45.20 Mild intermittent asthma, uncomplicated; Z91.09 Other allergy status, other than to drugs and biological substances; Z80.8 Family history of malignant neoplasm of other organs or systems; H61.23 Impacted cerumen, bilateral

== ENCOUNTER → 2024-06-07 11:45 | Outpatient (BNVA) | payer BC, SELFPAY | PROVIDERS: PCP Family Medicine; Visit Provider Nurse Practitioner Family ==

== ENCOUNTER 2024-06-07 12:57 | Outpatient (REF) | payer BC, SELFPAY ==
[2024-06-07 14:48] LABS: Hematocrit 39.7 % (42.0-52.0); Hemoglobin 13.1 g/dl (14.0-18.0); Mean Corpuscular Hemoglobin 29.2 pg (27.0-33.0); Mean Corpuscular Volume 88.4 fL (80.0-98.0); Mean Platelet Volume 9.9 fL (9.4-12.4); Platelet Count 307 X10*3/uL (160-400); Red Blood Count 4.49 X10*6/uL (4.60-5.80); Red Cell Distribution Width 13.1 % (11.0-16.0); White Blood Count 6.1 X10*3/uL (4.8-10.8)
--- OUTSIDE RECORDS SUMMARY | 2024-06-07 15:21 | XMS_ITS | Clinical Summary ---
Author Organization [facility] Address [address] [place] [address] Care Team Providers Care Lcpc Name Role Phone Dorene Cardona Primary Care Provider [phone] Medications Medication Sig Dispensed Refills Start Date [...] Father melanoma, prost ate Early Maternal Grandfather [place] Heart disease Maternal Grandfather Cancer Mother Common bile taran t Early Paternal Grandfather ID Heart disease Paternal Grandfather Alcohol abuse Sister [...] age to complete this topic Care Teams Lcpc Relationship Specialty Start Date End Date Dorene Cardona DO PCP - General Family Medicine 05/12/17
[2024-06-07 15:38] LABS: Creatinine Urine 102.94 mg/dL; Microalbumin Urine < 5.0 mg/L
[2024-06-07 15:42] LABS: Folate 13.1 ng/mL (> or = 4.0); Vitamin B12 499 pg/mL (200-900)
[2024-06-07 16:34] LABS: Alanine Aminotransferase 51 U/L (0-40); Albumin Level 4.5 g/dL (3.5-5.0); Alkaline Phosphatase 67 U/L (39-117); Anion Gap 10 (12-20); Aspartate Amino Transferase 38 U/L (5-37); Bilirubin Total 0.8 mg/dL (0.0-1.0); Blood Urea Nitrogen 12 mg/dL (9-16); Calcium 9.8 mg/dL (8.4-10.2); Carbon Dioxide 29 mmol/L (22-29); Chloride 104 mmol/L (96-108); Cholesterol 221 mg/dL (<200); Estimated Glomerular Filt Rate > 60; Glucose Random 102 mg/dL (60-115); HDL Cholesterol 40 mg/dL (>40); Iron 137 mcg/dL (45-160); LDL Cholesterol Calculated 141 mg/dL (<100); Percent Iron Saturation 40 % (15-50); Potassium 4.2 mmol/L (3.3-5.1); Sodium 139 mmol/L (135-145); Total Iron Binding Capacity 346 mcg/dL (228-428); Total Protein 7.1 g/dL (6.5-8.0); Triglycerides 200 mg/dL (<150); Unsaturated Iron Binding 209 ug/dL
[2024-06-07 16:56] LABS: Ferritin 46 ng/mL (20-250); TSH reflex Free T4 2.69 uIU/mL (0.32-4.0); Vitamin D 25-OH Total 50.3 ng/mL (>30)
[2024-06-14 00:58] LABS: PSA, Ultra Sensitive 0.55 ng/mL
== END 2024-06-07 12:58 | disposition home or self-care (01) ==
LOC: HO.WFDLDS 12:57
PROVIDERS: Visit Provider Nurse Practitioner Family
DX: Z00.01 Encounter for general adult medical examination with abnormal findings (principal); R73.03 Prediabetes; E78.2 Mixed hyperlipidemia; E78.6 Lipoprotein deficiency; R94.6 Abnormal results of thyroid function studies; K92.1 Melena; K64.9 Unspecified hemorrhoids; J45.20 Mild intermittent asthma, uncomplicated; D31.42 Benign neoplasm of left ciliary body; H61.23 Impacted cerumen, bilateral; Z91.09 Other allergy status, other than to drugs and biological substances; Z80.8 Family history of malignant neoplasm of other organs or systems; Z80.42 Family history of malignant neoplasm of prostate; Z12.5 Encounter for screening for malignant neoplasm of prostate
CPT/HCPCS: 36415; 80053; 80061; 82043; 82306; 82570; 82607; 82728; 82746; 83036; 83540; 84153; 84443; 85027; 96127

== ENCOUNTER 2024-06-09 08:29 | Outpatient (REF) | payer BC, SELFPAY ==
--- NOTE | ~2024-06-09 | US_ITS ---
CLINICAL HISTORY: K92.1 - ELEVATED LIVER FUNCTION TESTS --- Additional Notes or Special Instructions: family hx of common bile duct ca US abdomen complete Comparison: None Findings: The visualized pancreas is normal. The aorta and inferior vena cava are normal caliber. The liver is normal in size and is mildly hyperechoic. There is no intrahepatic bile duct dilatation. The common duct is 4 mm in diameter. The gallbladder is normal. There is no sonographic Brunson sign. The main portal vein is antegrade. The right kidney is 11.3 cm in length. Punctate echogenic focus with twinkle artifact within the right renal midpole. No hydronephrosis. The left kidney is 10.5 cm in length. The spleen is normal. No ascites. IMPRESSION: 1. No suspicious hepatic masses or evidence of biliary obstruction. Mildly echogenic hepatic parenchyma which can be seen with steatosis. 2. Punctate nonobstructing right renal stone. This document has been electronically signed by: Jose Juan Shankar DO on 06/09/2024 10:50:30
--- OUTSIDE RECORDS SUMMARY | 2024-06-09 08:49 | XMS_ITS | Clinical Summary ---
Author Organization [facility] Address [address] [place] [address] Care Team Providers Care Associate Editor Name Role Phone Dorene Cardona Primary Care Provider [phone] Medications Medication Sig Dispensed Refills Start Date [...] Father melanoma, prost ate Early Maternal Grandfather [place] Heart disease Maternal Grandfather Cancer Mother Common bile taran t Early Paternal Grandfather [place] Heart disease Paternal Grandfather Alcohol abuse Sister [...] age to complete this topic Care Teams Associate Editor Relationship Specialty Start Date End Date Dorene Cardona DO PCP - General Family Medicine 05/12/17
== END 2024-06-09 08:30 | disposition home or self-care (01) ==
LOC: HO.US 08:29
PROVIDERS: PCP Family Medicine; Visit Provider Nurse Practitioner Family
DX: K92.1 Melena (principal); R79.89 Other specified abnormal findings of blood chemistry; D64.9 Anemia, unspecified
CPT/HCPCS: 76700

== ENCOUNTER → 2024-06-09 08:32 | Outpatient (BNV) | payer BC, SELFPAY | PROVIDERS: PCP Family Medicine; Visit Provider Radiology Diagnostic Radiology | DX: K92.1 Melena (principal); R94.5 Abnormal results of liver function studies | CPT/HCPCS: 76700 ==

== ENCOUNTER 2024-06-14 17:48 | Outpatient (REF) | payer BC, SELFPAY ==
--- OUTSIDE RECORDS SUMMARY | 2024-06-20 18:46 | XMS_ITS | Clinical Summary ---
Author Organization [facility] Address [address] [place] [address] Care Team Providers Care Health Information Technician Name Role Phone Dorene Cardona Primary Care Provider [phone] Medications Medication Sig Dispensed Refills Start Date [...] age to complete this topic Care Teams Health Information Technician Relationship Specialty Start Date End Date Dorene Cardona DO PCP - General Family Medicine 05/12/17
== END 2024-06-14 17:49 | disposition home or self-care (01) ==
LOC: HO.LNP 17:48
PROVIDERS: Visit Provider Nurse Practitioner Family
DX: Z13.89 Encounter for screening for other disorder (principal)

== ENCOUNTER 2024-06-17 | Outpatient (REF) | payer BC, SELFPAY ==
--- OUTSIDE RECORDS SUMMARY | 2024-06-19 14:34 | XMS_ITS | Clinical Summary ---
Author Organization [address] [place] [address] Address [address] [place] [address] Phone Care Team Providers Care Livestock Brands Inspector Name Role Phone Marlo Montez MD Primary Care Provider Social History Tobacco Use Types Packs/Day Years Used Date Smoking Tobacco: Never Assessed Sex and Gender Information Value Date Recorded Sex Assigned at Not on file Legal Sex Male 6:20 AM EST Gender Identity Not on file Sexual Orientation Not on file Plan of Treatment Upcoming Encounters Date Type Department Care Team ([facility] Contact Info) Description 07/21/2024 2:20 PM EDT Consult Gastroenterology - [address] [address] Raysa Mckeon NP [address] [address] Health Maintenance Due Date Last Done Comments [...] patient's age to complete this topic Insurance [facility] Care Teams Livestock Brands Inspector Relationship Specialty Start Date End Date Marlo Montez MD [address] [place] [address] Dr Hernandez [place], [place] PCP - General Family Medicine 06/15/24
--- OUTSIDE RECORDS SUMMARY | 2024-06-19 14:34 | XMS_ITS | Clinical Summary ---
Author Organization [facility] Address [address] [place] [address] Care Team Providers Care Transportation Engineering Technician Name Role Phone Dorene Cardona Primary Care Provider [phone] Medications Medication Sig Dispensed Refills Start Date [...] age to complete this topic Care Teams Transportation Engineering Technician Relationship Specialty Start Date End Date Dorene Cardona DO PCP - General Family Medicine 05/12/17
== END 2024-06-17 00:01 | disposition home or self-care (01) ==
LOC: HO.LNP
PROVIDERS: Visit Provider Nurse Practitioner Family
DX: Z13.89 Encounter for screening for other disorder (principal)
CPT/HCPCS: 82270

== ENCOUNTER 2024-06-19 10:37 | Outpatient (AMB) | payer BC, SELFPAY ==
[2024-06-19 10:43] VITALS: BP 142/76; PULSE 72; O2SAT 97; BMI 25.0
--- NOTE | 2024-06-19 10:43 | A.OFFVIS_ITS ---
Vital Signs 06/19/24 10:43 Height 5 ft 9 in Weight 169 lb BMI 25.0 BP 142/76 H Blood Pressure Location Rt brachial Position Sitting Pulse 72 Pulse Source Pulse Oximeter Pulse Oximetry (%) 97 Oxygen Delivery Method Room Air Intake Visit Reasons: Black tarry stools, add on from CL. Intake Note: NEW PATIENT for initial eval of melena/hematochezia. Prior hx of colo/egd? N Chief Complaint; C/O BRB per rectum, frequently 5-7 days / week, multiple instances / day. Pt reports that stool sometimes appears to contain mucus or appear sticky ? Pt denies any black/tarry stools. No additional sx or concerns per pt. No pertinent FMHx. Reports intermittent blood in stools - a few times a week. Denies any black, tarry stools. He notes sometimes entire toilet paper is red. Blood more often on toilet paper than bowl. per PCP. Video Editing Internship Required: No Accompanied by: Self / Same As Patient Allergies No Known Allergies Allergy (Verified 06/19/24 10:56) HPI HPI Black tarry stools, add on from CL.: Details: 48 year old? male here today for pre colonoscopy screening.? Patient was sent to us by his PCP.? This is his first colonoscopy screening.? Patient reports that since December his bowel pattern changed. Increased bowel movements throughout the day about 2-3 bowel movements daily. Patient reports that they are solid but soft. Patient reports that 80% when he has a bowel movement there is a blood in the stool. Patient denies any gastrointestinal symptoms in the past or at present.? Denies any personal or family history of gastrointestinal disease, colon polyps, or CRC.? However patient does report his mother had a cancer of common bile duct. Denies history of difficulty with sedation or anesthesia in the past.? Negative for history of sleep apnea.? Denies any history of cardiac, renal, pulmonary, or hepatic disease.?? No history of infectious? diseases like hepatitis A, B, C, HIV or tuberculosis.? Patient is not on any anticoagulation [facility] Surgical History No pertinent past surgical history Family History Mother Bile duct cancer Father Prostate cancer Melanoma Social History Housing: House Alcohol intake: current Comment: 4-6 / mos. 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 Cognitive needs: No Hearing needs: No Vision needs: No Review of Systems Const Denies weight gain and Denies weight loss ENT Reports no additional complaints, Denies dysphagia and Denies odynophagia Card Reports no additional complaints Resp Reports no additional complaints GI Denies abdominal pain, Denies belching, Denies melena, Denies bloating, Reports hematochezia, Denies change in bowel habits, Denies dysphagia, Denies excessive flatus, Denies dyspepsia, Denies heartburn, Denies diarrhea, Denies loose stools, Denies nausea, Denies odynophagia and Denies vomiting Reports no additional complaints Musc Reports no additional complaints Neuro Reports no additional complaints Psych Reports no additional complaints Endo Reports no additional complaints Physical Exam Vital Signs: BMI result Body Mass Index 25.0 Const General: healthy appearing, no acute distress and well developed Nutritional Appearance: well nourished Orientation/consciousness: patient oriented x3 Resp Effort & Inspection: normal respiratory effort, able to speak in complete sentences, no tracheal deviation and symmetric chest movement Auscultation: clear to auscultation bilaterally Cardio Rate: regular rate GI Inspection: Yes normal to inspection and No distended Palpation (GI): Soft to palpation, not firm, nontender and No hepatosplenomegaly present Auscultation: normal bowel sounds General: Yes no CVA tenderness Back/Spine/Pelvis Back: no CVA tenderness Skin General skin exam: elasticity normal, turgor normal and dry skin Neuro General: patient oriented x3 Psych Appearance: grossly normal Mental Status: mental status grossly normal Results Reviewed Results Reviewed: Laboratory Tests 06/07/24 13:00 RBC 4.49 L Hgb 13.1 L Hct 39.7 L MCV 88.4 Laboratory Tests 06/07/24 13:00 AST 38 H ALT 51 H Alkaline Phosphatase 67 ABDOMINAL ULTRASOUND 06/09/2024 IMPRESSION: 1. No suspicious hepatic masses or evidence of biliary obstruction. Mildly echogenic hepatic parenchyma which can be seen with steatosis. 2. Punctate nonobstructing right renal stone. Assessment & Plan Assessment & Plan (1) Fatty liver: Comment: 05/2024 US Code(s): K76.0 - Fatty (change of) liver, not elsewhere classified Category: Medical (2) Elevated LFTs: Code(s): R79.89 - Other specified abnormal findings of blood chemistry Category: Medical (3) Blood in stool: Code(s): K92.1 - Melena Category: Medical (4) Screening for colon cancer: Code(s): Z12.11 - Encounter for screening for malignant neoplasm of colon Category: Medical Plan Patient denies any cardiac or respiratory symptoms.? Denies any issues with anesthesia in the past.? Denies any history of sleep apnea.? No history infectious diseases in the past or present.? Not on any anticoagulation therapy.? No family history of CRC. Patient denies melena, reports hematochezia. Elevated liver enzymes, recent increase in statin. Will wait till next visit and recheck his liver enzymes.? Patient's mother was diagnosed with common bile duct Ca, alk phosphate normal. Next visit we will order done urgent MRI with and without contrast. Discussed at length the pre-procedure,? prep, diet & medications as well as what to expect prior, during and after the procedure.?? Stressed the importance of good bowel prep.? Recommended the use of baby wipes with bowel movements to promote comfort.? ?Patient verbalizes understanding and agrees to plan of care.? He was given the opportunity to ask questions and all questions answered.? We will see him after the procedure.? Medications: New bisacodyl (Dulcolax (bisacodyl)) take 4 tabs at noon the day before your colonoscopy 20 mg (4 x 5 mg) PO ONCE 1 day 4 tabs 0RF constipation Z12.11 - Encounter for screening for malignant neoplasm of colon polyethylene glycol 3350 (Miralax) As directed by gastroenterology department at [facility] 238 grams PO ONCE 238 grams 0RF Z12.11 - Encounter for screening for malignant neoplasm of colon Coding Level of Care Code New Pt Level 4 (77349) Diagnoses Fatty liver K76.0 Elevated LFTs R79.89 Blood in stool K92.1 Screening for colon cancer Z12.11 Time Spent (min) 50 Comment 35 minutes spent with patient and additional 15 minutes spent reviewing his records
--- OUTSIDE RECORDS SUMMARY | 2024-06-19 12:33 | XMS_ITS | Clinical Summary ---
Author Organization [address] [place] [address] Address [address] [place] [address] Phone Care Team Providers Care Tire Mechanic Name Role Phone Marlo Montez MD Primary Care Provider Social History Tobacco Use Types Packs/Day Years Used Date Smoking Tobacco: Never Assessed Sex and Gender Information Value Date Recorded Sex Assigned at Not on file Legal Sex Male 6:20 AM EST Gender Identity Not on file Sexual Orientation Not on file Plan of Treatment Upcoming Encounters Date Type Department Care Team ([facility] Contact Info) Description 07/21/2024 2:20 PM EDT Consult Gastroenterology - [address] [address] Raysa Mckeon NP [address] [address] Health Maintenance Due Date Last Done Comments Hepatitis B Vaccines (1 of 3 - 19+ 3-dose series) 07/09/1994 Pneumococcal Vaccine: Pediat rics (0 to 5 Years) and At-Risk Patients (6 to 64 Years) (1 of 2 - PCV) 07/09/1994 COVID-19 Vaccine (2023-2 5 season) 2023 Cholesterol Screening (Lipid Panel) 06/16/2024 Colorectal Cancer Screening: Colonoscopy 06/16/2024 Depression Screening 06/16/2024 HIV Screening 06/16/2024 Hepatitis C Screening 06/16/2024 Social Influencers of Health Screening 06/16/2024 Influenza Vaccine (Season Ended) 2024 DTaP,Tdap,and Td Vaccines (2 - Td or Tdap) 09/21/2026 09/21/2016 HIB Vaccines Aged Out No longer eligi ble based on patient's age to complete this topic HPV Vaccines Aged Out No longer eligi ble based on patient's age to complete this topic Hepatitis A Vaccines Aged Out No long er eligible based on patient's age to complete this topic IPV Vaccines Aged Out No longer eligi ble based on patient's age to complete this topic MMR Vaccines Aged Out No longer eligi ble based on patient's age to complete this topic Meningococcal ACWY Vaccine Aged Out N o longer eligible based on patient's age to complete this topic Meningococcal B Vaccine Aged Out No l onger eligible based on patient's age to complete this topic RSV Immunization Patients Un jose luis 20 months Aged Out No longer eligible b ased on patient's age to complete this topic Varicella Vaccines Aged Out No longer eligible based on patient's age to complete this topic Insurance [facility] Care Teams Tire Mechanic Relationship Specialty Start Date End Date Marlo Montez MD [address] [place] [address] Dr Hernandez [place], [place] PCP - General Family Medicine 06/15/24
--- OUTSIDE RECORDS SUMMARY | 2024-06-19 12:33 | XMS_ITS | Clinical Summary ---
Author Organization [facility] Address [address] [place] [address] Care Team Providers Care Configuration Management Architect Name Role Phone Dorene Cardona Primary Care Provider [phone] Medications Medication Sig Dispensed Refills Start Date [...] Father melanoma, prost ate Early Maternal Grandfather [place] Heart disease Maternal Grandfather Cancer Mother Common bile taran t Early Paternal Grandfather [place] Heart disease Paternal Grandfather Alcohol abuse Sister [...] age to complete this topic Care Teams Configuration Management Architect Relationship Specialty Start Date End Date Dorene Cardona DO PCP - General Family Medicine 05/12/17
== END 2024-06-19 11:52 | disposition home or self-care (01) ==
LOC: HO.HGI 10:38
PROVIDERS: PCP Family Medicine; Visit Provider Nurse Practitioner Family
DX: K76.0 Fatty (change of) liver, not elsewhere classified (principal); R74.01 Elevation of levels of liver transaminase levels; K92.1 Melena; Z12.11 Encounter for screening for malignant neoplasm of colon
CPT/HCPCS: 99204

== ENCOUNTER → 2024-06-19 10:37 | Outpatient (BNVA) | payer BC, SELFPAY | PROVIDERS: PCP Family Medicine; Visit Provider Nurse Practitioner Family ==

== ENCOUNTER 2024-08-01 07:38 | Day surgery (SDC) | payer BC, SELFPAY ==
--- OUTSIDE RECORDS SUMMARY | 2024-07-25 13:47 | XMS_ITS | Patient Health Record ---
Author Organization [facility] Address [address] [facility] [place] [address] Care Team Providers Care Church History Teacher Name Role Phone Dorene Cardona DO Primary Care Provider Junior phillip Melvina Miranda Unavailable [phone] Reason For Referral No Information Medications Medication SIG (Take, Route, Fr equency, Duration) Notes Start Date End Date Status One-A-Day Mens 1 tablet Once a day Active Social History Tobacco Use: Social History Observation Description Date Details (start date - stop date) Never Smoker NA - NA Tobacco Use/Smoking Question Answer Notes Are you a: nonsmoker Additional Findings: Tobacco Non-User Current no n-smoker Alcohol Screen Question Answer Notes Did you have a drink containing alcohol in the p ast year? Yes Points 0 Interpretation Negative Tobacco use other than smoking: Question Answer Notes Are you an other tobacco user? No Problems Problem Type SNOMED Code ICD Code Onset Dates Problem Status W/U Status Risk Notes Problem Acquired hammer toe of right foot ([id number]) Other hammer toe(s) (acquired), right foot (M20.41) Active confirmed Plan Of Treatment No Information Insurance Providers Payer Name Payer Address Payer Phone Subscriber Number Group Number Insured Name Patient Relationship to Insured Coverage Start Date Coverage End Date [facility] [address] [place] [address] [id number] Anirudh Lipscomb Self - patient is the insured Medical (General) History Medical History History ICD Code asthma Cholesterol Warts Chicken pox
[2024-07-28 12:55] VITALS: BMI 25.0
--- NOTE | 2024-07-31 10:32 | HO.ANESPROP2 ---
HPI - Anesthesia Eval Consult details Narrative: 49yo M for Colonoscopy PMFSH Active Problems Active Problems: All Active Problems Fatty liver (Acute) Anemia (Acute) Elevated LFTs (Acute) Impacted cerumen of both ears (Acute) Nevus of iris of left eye (Acute) Family history of prostate cancer in father (Acute) Family history of melanoma (Acute) Environmental allergies (Acute) Allergy-induced asthma (Acute) Hemorrhoid (Acute) Blood in stool (Acute) Hypercalcemia (Acute) Elevated TSH (Acute) Screening for colon cancer (Acute) Low HDL (under 40) (Acute) Screening for prostate cancer (Acute) Hyperlipidemia (Acute) Adult general medical exam (Acute ~05/2024) Screening for skin cancer (Acute) Prediabetes (Acute) Past Medical History Medical History Rectal cancer Allergy-induced asthma Pre-diabetes Fatty liver Elevated cholesterol Anemia Family History Family History Mother Bile duct cancer Father Prostate cancer Melanoma Surgical History Surgical History History of colonoscopy Brethren teeth extracted No pertinent past surgical history Social History Social History Housing: House Alcohol intake: current Alcohol intake frequency: holidays/special occasions only Comment: 4-6 / mos. 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
--- NOTE | 2024-08-01 07:45 | MHC.SHP ---
Pre-Procedural Eval Section A - 24 Hr Update-Section A only Date of Service: 08/01/24 Section B - Complete if H&P > 30 days Chief Complaint: Rectal bleeding Present Medications: see Short Stay Collaborative assessment Allergies: Allergies Allergy/AdvReac Type Severity Reaction Status Date / Time No Known Allergies Allergy Verified 06/19/24 10:56 Review of Systems Review of Systems Comment: Ten point ROS negative Exam Exam Comment: Gen appear: No acute distress HEENT: no icterus Chest: No overt resp distress Abd: soft, nontender, nondistended Psych: Stable affect, answering questions appropriately Neuro: A/Ox3 noted to move all extremities spontaneously Ext: no peripheral edema Plan Diagnosis/Plan: Unchanged I have reviewed the history and physical and performed a pertinent physical examination on my patient. No changes have occurred unless specified. Time Spent With Patient Time: Total time managing care of this patient today ____ minutes.
[2024-08-01 07:58] VITALS: BP 136/88; PULSE 76; RESP 20; TEMP 36.8; O2SAT 97; BMI 24.5
--- NOTE | 2024-08-01 08:19 | P.CONAN_ITS ---
COUNT INCLUDES THE [facility] Active Problems Active Problems: All Active Problems Fatty liver (Acute) Anemia (Acute) Elevated LFTs (Acute) Impacted cerumen of both ears (Acute) Nevus of iris of left eye (Acute) Family history of prostate cancer in father (Acute) Family history of melanoma (Acute) Environmental allergies (Acute) Allergy-induced asthma (Acute) Hemorrhoid (Acute) Blood in stool (Acute) Hypercalcemia (Acute) Elevated TSH (Acute) Screening for colon cancer (Acute) Low HDL (under 40) (Acute) Screening for prostate cancer (Acute) Hyperlipidemia (Acute) Adult general medical exam (Acute ~05/2024) Screening for skin cancer (Acute) Prediabetes (Acute) Past Medical History Medical History Allergy-induced asthma Pre-diabetes Fatty liver Elevated cholesterol Anemia Family History Family History Mother Bile duct cancer Father Prostate cancer Melanoma Family history of problems with anesthesia: No Surgical History Surgical History [place] teeth extracted No pertinent past surgical history Social History Social History Housing: House Alcohol intake: current Alcohol intake frequency: does not drink Comment: 4-6 / mos. Patient Tobacco Use Status: Never used Tobacco e-Cigarette/Vaping Use: Never Used Have you been hit, kicked, punched, or otherwise hurt by someone within the past year? 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 Cognitive needs: No Hearing needs: No Vision needs: No Meds Allergies Allergy/AdvReac Type Severity Reaction Status Date / Time No Known Allergies Allergy Verified 06/19/24 10:56 Active Medications: Current Medications Albuterol Sulfate (Albuterol Sulfate (0.083%) 2.5 Mg/3 Ml Vial.Neb) 2.5 mg INHALE ONCE PRN PRN Reason: Shortness of Breath/Wheezing Lactated Ringer's (Lr) 1,000 mls @ 100 mls/hr IVCONT .Q10H [place] Exam Height,Weight and Vital Signs: Height 5 ft 9 in Weight 75.2 kg Last Vital Signs Temp 98.3 F 08/01/24 07:58 Pulse 76 08/01/24 07:58 Resp 20 08/01/24 07:58 BP 136/88 08/01/24 07:58 Pulse Ox 97 08/01/24 07:58 O2 Del Method Room Air 08/01/24 07:58 Assessment and Plan Final Anesthetic Review Family History of Problems with Anesthesia: No ASA Class: II Patient Risk: Low Procedure Risk: Low Anesthetic Plan Anesthetic Plan: MAC: Disposition: Standard PACU
[2024-08-01] MEDS: Lactated Ringers 1,000 ML 100 ML IVCONT (08:25)
--- NOTE | 2024-08-01 10:19 | P.OPN-COLO_ITS ---
Colonoscopy Operative Note Operative Note Date of Service: 08/01/24 Narrative: Procedure: Colonoscopy Indication: Hematochezia Endoscopist: Delaney Cooney MD Anesthesia Provider: Dr Zaira Lee Anesthesia type: MAC Instrument: Olympus [id number]-[id number] Consent: Indication, risks vs benefits, and alternatives were discussed with the patient who gave written informed consent to proceed. EKG, pulse, pulse oximetry and blood pressure were monitored throughout the procedure. Please see anesthesia flowsheet. Procedure: The patient was brought to the procedure room and placed in the left lateral decubitus position. IV medications were administered by the anesthesia provider in attendance. A digital rectal exam was performed which was normal. A distal attachment cap was affixed to the tip of the colonoscope which was then inserted through the anus and advanced through the colon to the cecum at 75 cm,and terminal ileum. Appendiceal orifice and ileocecal valve were identified. Mucosa was carefully examined under high definition white light as the instrument was slowly withdrawn in a retrograde panoramic fashion. Retroflexion was performed in ascending colon and rectum. The procedure was not difficult. There were no immediate obvious complications. The quality of the prep was BBPS: 2+3+2 = adequate Withdrawal time 40 minutes. Limitations: No limitations. Findings: Mucosa: Normal to cecum and terminal ileum. Protruding lesions: * 1 large sessile malignant appearing polyp of size 4 cm noted in the rectum almost 5 cm from anal orifice. The polyp was initially not bleeding but started oozing when manipulated with the scope. 4 cc of epinephrine were injected within and around the polyp. The polyp was then attempted to be lifted with eleview but the proximal edge of the polyp did not lift well. Hot snare polypectomy was attempted but the proximal edge of the polyp could not b e captured. Piecemeal polypectomy of remaining polyp was performed and sent for histology. * 1 pedunculated polyp of size 8 mm in sigmoid colon. Hot snare polypectomy was performed. The polyp was completely removed and retrieved. * 1 sessile polyp of size 4 mm in sigmoid colon. Cold snare polypectomy was performed. The polyp was completely removed and retrieved. * 1 sessile polyp of size 7 mm in transverse colon. Cold snare polypectomy was performed. The polyp was completely removed and retrieved. * 1 sessile polyp of size 4 mm in cecum. Cold snare polypectomy was performed. The polyp was completely removed and retrieved. * Medium internal hemorrhoids without stigmata of recent bleeding. Impression: 1. Malignant appearing rectal polyp 2. 4 other colon polyps were removed 3. Internal hemorrhoids Recommendations: - Follow path results. - Urgent surgical referral requested - CT abd/pel with IV contrast to be done as outpatient
[2024-08-01 10:21] VITALS: BP 128/71; PULSE 64; RESP 16; TEMP 36.1; O2SAT 96
[2024-08-01 10:30] VITALS: BP 143/80; PULSE 79; RESP 16; TEMP 36.1; O2SAT 96
--- NOTE | 2024-08-01 11:09 | HO.POSTANES ---
Post Anesthesia Evaluation Post Anesthesia Evaluation Date of Service: 08/01/24 Vital Signs: Vital Signs Temp Pulse Resp BP Pulse Ox O2 Del Method 08/01/24 10:30 97 F 79 16 143/80 H 96 Room Air 08/01/24 10:21 97 F 64 16 128/71 96 Room Air 08/01/24 07:58 98.3 F 76 20 136/88 97 Room Air Anesthesia: Monitored Mental Status: Awake Pain Control: Satisfactory Nausea/Vomiting: None Hydration: Adequate Anesthesia-Related Issues: No Anes. Related Issues
== END 2024-08-01 11:28 | disposition home or self-care (01) ==
PROVIDERS: PCP Nurse Practitioner Family; Visit Provider Internal Medicine
PROC: 0DJD8ZZ Inspection of Lower Intestinal Tract, Via Natural or Artificial Opening Endoscopic (ICD-10-PCS; CPT 45378; principal; 2024-08-01 09:10)
DX: K62.5 Hemorrhage of anus and rectum (principal); C20 Malignant neoplasm of rectum; D12.0 Benign neoplasm of cecum; D12.3 Benign neoplasm of transverse colon; D12.5 Benign neoplasm of sigmoid colon; K64.8 Other hemorrhoids; K76.0 Fatty (change of) liver, not elsewhere classified; D64.9 Anemia, unspecified; R79.89 Other specified abnormal findings of blood chemistry; J45.909 Unspecified asthma, uncomplicated; E78.5 Hyperlipidemia, unspecified; R73.03 Prediabetes; Z79.899 Other long term (current) drug therapy
CPT/HCPCS: 45385; 45381; 88305; 88341; 88342; 88360; J0171; J2003; J2704

== ENCOUNTER → 2024-08-01 07:38 | Outpatient (BNV) | payer BC, SELFPAY | PROVIDERS: PCP Nurse Practitioner Family; Visit Provider Internal Medicine | DX: K62.5 Hemorrhage of anus and rectum (principal); C20 Malignant neoplasm of rectum; D12.5 Benign neoplasm of sigmoid colon; D12.3 Benign neoplasm of transverse colon; D12.0 Benign neoplasm of cecum; K64.8 Other hemorrhoids | CPT/HCPCS: 45385 ==

== ENCOUNTER 2024-08-03 08:31 | Outpatient (AMB) | payer BC, SELFPAY ==
--- NOTE | 2024-08-03 08:32 | A.OFFVIS_ITS ---
Vital Signs 08/03/24 08:42 Height 5 ft 9 in Weight 167 lb BMI 24.7 BP 146/80 H Blood Pressure Location Rt brachial Position Sitting Intake Visit Reasons: rectal polyp Intake Note: Pt states, I'm here because they did a colonoscopy on Wednesday and they found a cancerous polyp. c/o bleeding for a few days but that had stopped. Integration Technician Required: No Allergies No Known Allergies Allergy (Verified 08/03/24 08:44) Medication List - Last Reconciled 08/03/24 by Camron Ball RN albuterol sulfate 90 mcg/actuation 2 puffs PO Q6H PRN 30 days atorvastatin 40 mg PO DAILY montelukast 10 mg PO DAILY PRN HPI HPI rectal polyp: Details: 49-year-old male referred for a new diagnosis of a rectal cancer. He had undergone a colonoscopy on 08/01/[address] Acuña in view of passage of bright blood per rectum. There was note of a large sessile polyp about 4 cm in size in the rectum about 5 cm from the anal orifice. The polyp was not completely excised. The path report showed an invasive ductal cancer. There were 4 other smaller polyps that were removed which were tubular adenomas without significant dysplasia. He says he has started to see passage of bright blood per rectum periodically since about 5 months ago. He eventually saw his physician about 2 months ago because of this problem as this seemed to have been more frequent He denied any pain in the anus or rectum. He denies any abdominal pain He denies any strong family history of colon cancer. He says that he is in good health overall . 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 [facility] Medical History Rectal cancer Allergy-induced asthma Pre-diabetes Fatty liver Elevated cholesterol Anemia Surgical History History of colonoscopy [place] teeth extracted No pertinent past surgical history Family History Mother Bile duct cancer Father Prostate cancer Melanoma Social History Housing: House Alcohol intake: current Alcohol intake frequency: does not drink Comment: 4-6 / mos. 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 Cognitive needs: No Hearing needs: No Vision needs: No Review of Systems Const Denies chills and Denies fever(s) Card Denies chest pain, Denies dyspnea and Denies dyspnea on exertion Resp Denies cough, Denies dyspnea and Denies dyspnea on exertion GI Denies hematochezia and Denies change in bowel habits Denies hematuria and Denies difficulty urinating Musc Denies back pain and Denies limited range of motion Neuro Denies focal weakness and Denies convulsions Psych Denies depression and Denies mood swings Physical Exam Const General: comfortable and no acute distress Orientation/consciousness: patient oriented x3 Neck Neck: Yes no lymphadenopathy Resp Auscultation: clear to auscultation bilaterally Cardio Rhythm: regular rhythm GI Other: Rectal exam shows no perianal lesions Palpation (GI): Soft to palpation, nontender and no guarding Neuro General: patient oriented x3 Office Procedures Anoscopy He was in healing korina-knife position. The anoscope was gently inserted. A full examination of the anal canal was done. I could not identify the area of the lesion. I did not see any mass, fissure ulceration or any abnormal looking mucosa. Digital exam does not reveal any obvious mass or induration. There was no blood on the exam finger. [id number] Assessment & Plan Assessment & Plan (1) Rectal cancer: Code(s): C20 - Malignant neoplasm of rectum Category: Medical Plan: He had this large sessile polyp at level 5 cm partially removed on colonoscopy with the path report showing invasive adenocarcinoma moderately differentiation. Current exam including anoscopy does not reveal the area of the lesion I am going to therefore do a flexible sigmoidoscopy to determine the exact level of the lesion. I explained to him the technique of this procedure. I reviewed the risks including but not limited to bleeding and perforation, as well as the benefits and alternatives. He understands and agrees to proceed I told him that it is important to see where the lesion was exactly so we can determine approach to surgical treatment. He is going to have a CAT scan as well as part of the metastatic workup. I told him that we will arrange this for him His was with him during the visit. Coding Level of Care Code New Pt Level 4 (47880) Diagnoses Rectal cancer C20 CPT Codes Details - CPT: 21483-[id number] ([id number])
[2024-08-03 08:42] VITALS: BP 146/80; BMI 24.7
--- OUTSIDE RECORDS SUMMARY | 2024-08-03 08:43 | XMS_ITS | Patient Health Record ---
Author Organization [facility] Address [address] [place] [address] Care Team Providers Care Wire Temperer Name Role Phone Dorene Cardona DO Primary Care Provider Junior phillip Melvina Miranda Unavailable [phone] Reason For Referral No Information Medications Medication [...] Problem Acquired hammer toe of right foot ([id number] 105) Other hammer toe(s) (acquired), right foot (M20.41) Active confirmed Plan Of Treatment No Information Insurance Providers Payer Name Payer Address Payer Phone Subscriber Number Group Number Insured Name Patient Relationship to Insured Coverage Start Date Coverage End Date [facility] [address] [place] [address] [phone] [id number] Anirudh Lipscomb Self - patient is the insured Medical (General) History Medical History History ICD Code asthma Cholesterol Warts Chicken pox
== END 2024-08-03 09:12 | disposition home or self-care (01) ==
PROVIDERS: PCP Family Medicine; Visit Provider Surgery
DX: C20 Malignant neoplasm of rectum (principal)
CPT/HCPCS: 46600; 99204

== ENCOUNTER → 2024-08-03 08:31 | Outpatient (BNVA) | payer BC, SELFPAY | PROVIDERS: PCP Nurse Practitioner Family; Visit Provider Surgery | DX: C20 Malignant neoplasm of rectum (principal) | CPT/HCPCS: 46600 ==

== ENCOUNTER 2024-08-10 09:32 | Day surgery (SDC) | payer BC, SELFPAY ==
--- NOTE | 2024-08-09 09:49 | P.CONAN_ITS ---
Documented by User: Rebecca Vincent NP 08/09/24 09:49 HPI - Anesthesia Eval Consult details Narrative: 49yo M for Sigmoidoscopy Flexible PMFSH Active Problems Active Problems: All Active Problems Rectal cancer (Acute) Rectal polyp (Acute) Fatty liver (Acute) Anemia (Acute) Elevated LFTs (Acute) Impacted cerumen of both ears (Acute) Nevus of iris of left eye (Acute) Family history of prostate cancer in father (Acute) Family history of melanoma (Acute) Environmental allergies (Acute) Allergy-induced asthma (Acute) Hemorrhoid (Acute) Blood in stool (Acute) Hypercalcemia (Acute) Elevated TSH (Acute) Screening for colon cancer (Acute) Low HDL (under 40) (Acute) Screening for prostate cancer (Acute) Hyperlipidemia (Acute) Adult general medical exam (Acute ~05/2024) Screening for skin cancer (Acute) Prediabetes (Acute) Past Medical History Medical History Rectal cancer Allergy-induced asthma Pre-diabetes Fatty liver Elevated cholesterol Anemia Family History Family History Mother Bile duct cancer Father Prostate cancer Melanoma Family history of problems with anesthesia: No Surgical History Surgical History History of colonoscopy [place] teeth extracted No pertinent past surgical history Social History Social History Housing: House Alcohol intake: current Alcohol intake frequency: holidays/special occasions only Comment: 4-6 / mos. 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 Cognitive needs: No Hearing needs: No Vision needs: No Meds Allergies Allergy/AdvReac Type Severity Reaction Status Date / Time No Known Allergies Allergy Verified 08/03/24 08:44 Home Medications ?Medication ?Instructions ?Recorded ?Confirmed ?Last Taken ?Type montelukast 10 mg tablet 10 mg PO DAILY PRN 08/03/24 Unknown History Assessment and Plan Assessment Anesthesia Assessment: Chart Reviewed Final Anesthetic Review Family History of Problems with Anesthesia: No Documented by User: Rafael Ricci MD 08/10/24 12:09 [facility] Past Medical History Medical History Rectal cancer Allergy-induced asthma Pre-diabetes Fatty liver Elevated cholesterol Anemia Functional capacity: independent ambulation Family History Family History Mother Bile duct cancer Father Prostate cancer Melanoma Surgical History Surgical History History of colonoscopy [place] teeth extracted No pertinent past surgical history Social History Social History Housing: House Alcohol intake: current Alcohol intake frequency: holidays/special occasions only Comment: 4-6 / mos. 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 Cognitive needs: No Hearing needs: No Vision needs: No Meds Allergies Allergy/AdvReac Type Severity Reaction Status Date / Time No Known Allergies Allergy Verified 08/03/24 08:44 Home Medications ?Medication ?Instructions ?Recorded ?Confirmed ?Last Taken ?Type montelukast 10 mg tablet 10 mg PO DAILY PRN 08/03/24 Unknown History Exam Exam Date and Time: 08/10/2024 Height,Weight and Vital Signs: ht 69 inches, weigy 164 lbs Airway Mallampati Class: II TM Dist: >3cm Neck ROM: Full Heart: rrr Lungs: cta Assessment and Plan Final Anesthetic Review Final Preanesthetic Review: No Changes in Pt Med Stat, Meds/Allgs Chart Reviewed, Consent Obtained/Reviewed and Anes Risks/Benef Reviewed Patient Risk: Low Procedure Risk: Low Anesthetic Plan Anesthetic Plan: GA Disposition: Standard PACU
[2024-08-10 10:11] VITALS: BMI 24.6
[2024-08-10 10:18] VITALS: BP 141/69; PULSE 56; RESP 16; TEMP 36.3; O2SAT 98
[2024-08-10] MEDS: Lactated Ringers 1,000 ML 100 ML IVCONT (10:38)
--- NOTE | 2024-08-10 11:53 | MHC.SHP ---
Pre-Procedural Eval Section A - 24 Hr Update-Section A only Date of Service: 08/10/24 The patient is an INPATIENT: No Changes since office visit: No Cold of Flu in the past 2 weeks, No New Medical Problems, No Changes in Medication and No Patient answered all questions The patient has been examined within 24 hours of the surgical procedure. The History & Physical has been completed within 30 days and I have reviewed it.: Yes Section B - Complete if H&P > 30 days Chief Complaint: Malignant neoplasm of rectum Allergies: Allergies Allergy/AdvReac Type Severity Reaction Status Date / Time No Known Allergies Allergy Verified 08/03/24 08:44 Plan I have reviewed the history and physical and performed a pertinent physical examination on my patient. No changes have occurred unless specified. Time Spent With Patient Time: Total time managing care of this patient today ____ minutes.
--- NOTE | 2024-08-10 12:32 | W.PM.OPN ---
Operative Note Operative Note Date of Service: 08/10/24 Narrative: Preop diagnosis: Rectal cancer Postop diagnosis: Rectal cancer, starting from about 5-6 cm from the anal verge, extending for about 3-4 cm proximally Procedure: Flexible sigmoidoscopy Surgeon: Feliz Beauchamp MD The patient is a 49-year-old male referred to me for new diagnosis of rectal cancer. I had scheduled him for a flexible sigmoidoscopy to determine the exact level of the lesion. He understood the technique of the planned procedure as well as the risks, benefits, and alternatives. He was brought to the operating room. He was placed in left lateral decubitus position under monitored anesthesia care. A full digital rectal exam was done. There were no palpable lesions in the anal canal. I could not feel the lesion my finger I proceeded to insert the scope gently into the anal orifice advanced with insufflation. Immediately, I was able to visualize the flat polyp, occupying may be half of the circumference but extending proximally by about 3-4 cm. The very distal part of this lesion was about between 5-6 cm from the anal verge I proceeded to withdraw the scope. Pictures were taken Desufflation was done The patient tolerated procedure well. There were no immediate complications In view of the distal location of the tumor, I may have to refer him to a tertiary center for a very low anterior resection. I will discuss this with him in the office. His imaging studies are pending.
[2024-08-10 12:33] VITALS: BP 138/75; PULSE 71; RESP 16; TEMP 36.6; O2SAT 98
[2024-08-10 12:42] VITALS: BP 129/87; PULSE 73; RESP 18; O2SAT 98
[2024-08-10 12:55] VITALS: BP 130/96; PULSE 72; RESP 18; TEMP 36.6; O2SAT 99
== END 2024-08-10 13:09 | disposition home or self-care (01) ==
PROVIDERS: PCP Nurse Practitioner Family; Visit Provider Surgery
PROC: 0DJD8ZZ Inspection of Lower Intestinal Tract, Via Natural or Artificial Opening Endoscopic (ICD-10-PCS; CPT 45330; principal; 2024-08-10 11:40)
DX: C20 Malignant neoplasm of rectum (principal); D64.9 Anemia, unspecified; K76.0 Fatty (change of) liver, not elsewhere classified; E78.00 Pure hypercholesterolemia, unspecified; R73.03 Prediabetes; J45.909 Unspecified asthma, uncomplicated; Z79.899 Other long term (current) drug therapy
CPT/HCPCS: 45330; J2003; J2704; J3010

== ENCOUNTER → 2024-08-10 09:32 | Outpatient (BNV) | payer BC, SELFPAY | PROVIDERS: PCP Nurse Practitioner Family; Visit Provider Surgery | DX: C20 Malignant neoplasm of rectum (principal) | CPT/HCPCS: 45330 ==

== ENCOUNTER 2024-08-16 09:10 | Outpatient (REF) | payer BC, SELFPAY ==
[2024-08-16 11:07] LABS: Blood Urea Nitrogen 15 mg/dL (9-16); Estimated Glomerular Filt Rate > 60
== END 2024-08-16 09:11 | disposition home or self-care (01) ==
LOC: HO.LAB 09:10
PROVIDERS: PCP Family Medicine; Visit Provider Surgery
DX: C20 Malignant neoplasm of rectum (principal)
CPT/HCPCS: 36415; 82565; 84520

== ENCOUNTER 2024-08-16 09:10 | Outpatient (AMB) | payer BC, SELFPAY ==
--- NOTE | 2024-08-16 09:12 | MHC.OFFVIS ---
Vital Signs 08/16/24 09:19 Weight 165 lb BP 135/82 Blood Pressure Location Rt brachial Position Sitting Pulse 65 Intake Visit Reasons: s/p sigmoidoscopy Intake Note: Patient here s/p Flexible sigmoidoscopy on 08-10-2024. Patient c/o: no concerns. Denies bleeding, pain. Of note: scheduled w/ Mary Cueva 08-29-2024 @ 9am. Hand Compositor Required: No Accompanied by: Frida Allergies No Known Allergies Allergy (Verified 08/16/24 09:17) HPI HPI s/p sigmoidoscopy: Details: He has a new diagnosis for rectal cancer and had undergone flexible sigmoidoscopy last 08/10/2024. He tolerated procedure well. He currently denies new complaints. [facility] Medical History Rectal cancer Allergy-induced asthma Pre-diabetes Fatty liver Elevated cholesterol Anemia Surgical History History of colonoscopy [place] teeth extracted No pertinent past surgical history Family History Mother Bile duct cancer Father Prostate cancer Melanoma Social History Housing: House Alcohol intake: current Alcohol intake frequency: holidays/special occasions only Comment: 4-6 / mos. 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 Cognitive needs: No Hearing needs: No Vision needs: No Review of Systems Const Denies chills and Denies fever(s) Card Denies chest pain and Denies dyspnea Resp Denies dyspnea GI Denies abdominal pain Physical Exam Vital Signs: Last Vital Signs Pulse 65 08/16/24 09:19 BP 135/82 08/16/24 09:19 Const General: comfortable and no acute distress Resp Effort & Inspection: normal respiratory effort GI Palpation (GI): Soft to palpation, not firm and nontender Assessment & Plan Assessment & Plan (1) Rectal cancer: Code(s): C20 - Malignant neoplasm of rectum Category: Medical Plan: Flexible sigmoidoscopy shows that the tumor seems to start at around 5-6 cm from the anal verge. This involved so wide area of the mucosa and seems to extend proximally for about 4 cm In view of the low-lying tumor, I am going to refer her to the colorectal service in [facility]. I actually discussed this with the office. He will need to have workup with a CAT scan of the chest, abdomen and pelvis to determine the extent of disease including metastasis. He will have an MRI of the pelvis as well to define the lesion in terms of relationship with the extra rectal tissues. We will assist him in having the above done in a reasonable period of time. He understands as well that depending on workup, he may benefit from neoadjuvant treatment. His was with him during the visit. Orders: Orders MR pelvis w con Today C20 - Malignant neoplasm of rectum Blood Urea Nitrogen Today C20 - Malignant neoplasm of rectum Creatinine Today C20 - Malignant neoplasm of rectum CT chest w IV con Today C20 - Malignant neoplasm of rectum Coding Level of Care Code Est Pt Level 3 (87515) Diagnoses Rectal cancer C20
[2024-08-16 09:19] VITALS: BP 135/82; PULSE 65
--- OUTSIDE RECORDS SUMMARY | 2024-08-16 10:00 | XMS_ITS | Patient Health Record ---
Author Organization [facility] Address [address] [place] [address] Care Team Providers Care Physical Design Engineer Name Role Phone Dorene Cardona DO Primary Care Provider Junior phillip Melvina Miranda Unavailable [phone] Reason For Referral No Information Medications Medication [...] Problem Acquired hammer toe of right foot ([id number] 105) Other hammer toe(s) (acquired), right foot (M20.41) Active confirmed Plan Of Treatment No Information Insurance Providers Payer Name Payer Address Payer Phone Subscriber Number Group Number Insured Name Patient Relationship to Insured Coverage Start Date Coverage End Date [facility] [address] [place] [address] [id number] Anirudh Lipscomb Self - patient is the insured Medical (General) History Medical History History ICD Code asthma Cholesterol Warts Chicken pox
== END 2024-08-16 09:44 | disposition home or self-care (01) ==
LOC: HO.HGS 09:11
PROVIDERS: PCP Family Medicine; Visit Provider Surgery
DX: C20 Malignant neoplasm of rectum (principal)
CPT/HCPCS: 99213

== ENCOUNTER → 2024-08-17 15:52 | Outpatient (BNV) | payer BC, SELFPAY | PROVIDERS: PCP Family Medicine; Visit Provider Radiology Diagnostic Radiology | DX: C20 Malignant neoplasm of rectum (principal) | CPT/HCPCS: 72197 ==

== ENCOUNTER 2024-08-17 15:58 | Outpatient (REF) | payer BC, SELFPAY ==
--- NOTE | ~2024-08-17 | MR_ITS ---
CLINICAL HISTORY: C20 - Malignant neoplasm of rectum MRI pelvis without/with contrast Comparison: No prior studies of any type Findings: No rectal wall thickening is identified. No perirectal mass or adenopathy. No significant fluid in the pelvis. Prostate and seminal vesicles unremarkable. No acute bony signal abnormality. Urinary bladder grossly unremarkable. Impression: No significant abnormality This document has been electronically signed by: Az Bocanegra MD on 08/19/2024 20:46:01
[2024-08-17] MEDS: gadobutroL 7.5 ML VIAL IVPUSH (16:30)
--- OUTSIDE RECORDS SUMMARY | 2024-08-17 19:36 | XMS_ITS | Patient Health Record ---
Author Organization [facility] Address [address] [place] [address] Care Team Providers Care Associate Director Of Sales Name Role Phone Dorene Cardona DO Primary Care Provider Junior phillip Melvina Miranda Unavailable [phone] Reason For Referral No Information Medications Medication [...] Problem Status W/U Status Risk Notes Problem Other hammer toe(s) (acquired), right foot (M20.41) Active confirmed Plan Of Treatment No Information Insurance Providers Payer Name Payer Address Payer Phone Subscriber Number Group Number Insured Name Patient Relationship to Insured Coverage Start Date Coverage End Date [facility] [address] [place] [address] [id number] Anirudh Lipscomb Self - patient is the insured Medical (General) History Medical History History ICD Code asthma Cholesterol Warts Chicken pox
== END 2024-08-17 15:59 | disposition home or self-care (01) ==
LOC: HO.MRI 15:58
PROVIDERS: PCP Family Medicine; Visit Provider Surgery
DX: C20 Malignant neoplasm of rectum (principal)
CPT/HCPCS: 72197; A9585

== ENCOUNTER 2024-08-22 09:29 | Outpatient (REF) | payer BC, SELFPAY ==
--- NOTE | ~2024-08-22 | CT_ITS ---
EXAMINATION: CT CHEST WITH CONTRAST CLINICAL INFORMATION: Malignancy of the rectum . COMPARISON: None available. TECHNIQUE: Multidetector volumetric CT imaging of the chest was obtained after the administration of 85 mL of Omnipaque 350 intravenous contrast without immediate adverse reactions. Axial MIP volume rendering provided. Sagittal and coronal reformatted images were obtained. This CT examination was performed using dose optimization techniques as appropriate, variously including the following: *Automated exposure control *Adjustment of mA and/or kV according to patient size (this includes techniques or standardized protocols for targeted exams where dose is matched to indication/reason for exam; i.e. extremities or head) *Use of iterative reconstruction technique DLP: 141.6 mGy centimeter. FINDINGS: TRIM SETTER: Left upper extremity at the side of the head. Right upper extremity along the side of the body. No hyperinflation. LUNGS: No pulmonary nodules. No acute airspace disease. Scarring versus subsegmental atelectasis, lingula and lung bases. No bronchiectasis. No honeycombing. Upper airway is patent. MEDIASTINUM: No lymphadenopathy, mediastinum or perihilar. No pericardial effusion. No hemopericardium. No pneumomediastinum. Heart is not enlarged. No aneurysm or dissection, aorta. The included thyroid gland is not enlarged. PLEURA: No pleural effusion. No pneumothorax. No hemothorax. No calcified pleural plaques. AXILLA: No lymphadenopathy. UPPER ABDOMEN: No gross masses or lymphadenopathy. OSSEOUS STRUCTURES: No acute fracture or listhesis in the axial skeleton. No acute rib fracture. Probable bony island in the superior margin of the anterior lateral aspect of the left seventh rib. CT/CT chest w IV con IMPRESSION: No acute airspace disease. No gross pulmonary nodules. No mediastinal or perihilar lymphadenopathy. Negative for metastatic disease. Fleischner guidelines were followed. Electronically signed by: Izaiah Flores MD 08/22/2024 02:35 PM EDT
--- NOTE | ~2024-08-22 | CT_ITS ---
EXAMINATION: CT ABDOMEN AND PELVIS WITH CONTRAST CLINICAL INFORMATION: Rectal polyp COMPARISON: None available. TECHNIQUE: Multidetector volumetric images were obtained from the superior aspect of the liver through the pubic symphysis following administration 85 mL of Omnipaque 350 intravenous contrast. Sagittal and coronal reformatted images were obtained on the technologist's workstation. Oral contrast: No This CT examination was performed using dose optimization techniques as appropriate, variously including the following: *Automated exposure control *Adjustment of mA and/or kV according to patient size (this includes techniques or standardized protocols for targeted exams where dose is matched to indication/reason for exam; i.e. extremities or head) *Use of iterative reconstruction technique. DLP: 495 mGy centimeter FINDINGS: LUNG BASES: No acute airspace disease. No gross pulmonary nodules. LIVER, GALLBLADDER, AND BILIARY TREE: Liver measures 15 cm. No focal mass. Portal veins, hepatic veins and intrahepatic portion of the IVC are patent. No pericholecystic fluid collection or gallbladder wall thickening. Common bile duct measures 4 mm. PANCREAS: No focal mass. No peripancreatic fluid collection. No main pancreatic ductal dilatation. SPLEEN: 9 cm. No focal lesion. ADRENAL GLANDS: No nodular lesions. KIDNEYS AND URETERS: No hydronephrosis. No gross nephrolithiasis. No gross mass. Normal enhancement pattern of the renal cortex. BLADDER: Collapsed. GASTROINTESTINAL TRACT: Appendix is normal in retrocecal location. Abundant stool throughout the large intestine obscuring evaluation. No gross intestinal wall thickening. There is gas and fluid in a prominent terminal ileum. No intestinal obstruction pattern. No pneumatosis intestinalis. No pneumoperitoneum. No ascites. No peripheral enhancing fluid collections in the peritoneal cavity. Collapsed appearance of the distal ileal loops. ABDOMINAL WALL: Small fat-containing umbilical hernia. LYMPH NODES: Nonspecific prominent mesenteric and retroperitoneum. VASCULAR: Mixed plaques throughout the abdominal aorta wall without aneurysm or dissection. PELVIC VISCERA: Not enlarged. OSSEOUS STRUCTURES: Osteopenia. No acute fracture or listhesis. Spondylosis L5-S1. CT/CT abdomen pelvis w IV con IMPRESSION: Abundant stool within the large intestine. Unable to evaluate the large intestine. Fleischner guidelines were followed. Electronically signed by: Izaiah Flores MD 08/22/2024 12:29 PM EDT
--- OUTSIDE RECORDS SUMMARY | 2024-08-22 10:08 | XMS_ITS | Patient Health Record ---
Author Organization [facility] Address [address] [place] [address] Care Team Providers Care Electrician Maintenance Name Role Phone Dorene Cardona DO Primary Care Provider Junior phillip Melvina Miranda Unavailable [phone] Reason For Referral No Information Medications Medication [...] Insured Coverage Start Date Coverage End Date [facility] [address] [place] [address] [id number] Anirudh Lipscomb Self - patient is the insured Medical (General) History Medical History History ICD Code asthma Cholesterol Warts Chicken pox
--- OUTSIDE RECORDS SUMMARY | 2024-08-22 10:08 | XMS_ITS | Clinical Summary ---
Author Organization [facility] Address [address] [place] [address] Care Team Providers Care Dental Hygiene Instructor Name Role Phone Dorene Cardona Primary Care Provider [phone] Medications Medication Sig Dispensed Refills Start Date [...] Father melanoma, prost ate Early Maternal Grandfather [place] Heart disease Maternal Grandfather Cancer Mother Common bile taran t Early Paternal Grandfather [place] Heart disease Paternal Grandfather Alcohol abuse Sister [...] 70 07/12/2017 1:07 PM EDT Temperature 36.4 C (97.6 F) 07/12/2017 1:07 PM EDT Respiratory Rate 16 07/12/2017 1:07 PM EDT [...] Colon Cancer Screening (Colonoscopy) 07/09/2020 Influenza Vaccine (Season Ended) 2024 DTap / Tdap / Td (2 - Td or Tdap) 09/21/2026 017 Pneumococcal Vaccine Aged Out No long er eligible based on patient's age to complete this topic RSV Ped < 20 months Aged Out No longe r eligible based on patient's age to complete this topic Care Teams Dental Hygiene Instructor Relationship Specialty Start Date End Date Dorene Cardona DO PCP - General Family Medicine 05/12/17
--- OUTSIDE RECORDS SUMMARY | 2024-08-22 10:08 | XMS_ITS | Patient Health Record ---
Author Organization [facility] Address [address] [place] [id number] Care Team Providers Care Pediatric Radiologist Name Role Phone Harrison Caal Jr [phone] Reason For Referral No Information Plan Of Treatment No Information
[2024-08-22] MEDS: iohexoL 350 MG/ML 100 ML INFUS..BTL 85 ML IV (11:42)
== END 2024-08-22 09:30 | disposition home or self-care (01) ==
LOC: HO.CT 09:29
PROVIDERS: PCP Nurse Practitioner Family; Visit Provider Internal Medicine
DX: K62.1 Rectal polyp (principal); C20 Malignant neoplasm of rectum
CPT/HCPCS: 71260; 74177; Q9967

== ENCOUNTER → 2024-08-22 09:31 | Outpatient (BNV) | payer BC, SELFPAY | PROVIDERS: PCP Nurse Practitioner Family; Visit Provider Radiology Diagnostic Radiology | DX: K56.41 Fecal impaction (principal); C20 Malignant neoplasm of rectum | CPT/HCPCS: 71260; 74177 ==

== ENCOUNTER 2024-12-08 09:16 | Outpatient (AMB) | payer BC, SELFPAY ==
--- NOTE | 2024-12-08 09:20 | MHC.PC.OV ---
Vital Signs 12/08/24 09:28 Height 5 ft 9 in Weight 160 lb 2 oz BMI 23.6 BP 114/74 Blood Pressure Location Rt brachial Position Sitting Respiration 16 Pulse 88 Pulse Source Pulse Oximeter Temp 97.7 F Temp Source Temporal Artery Scan Pulse Oximetry (%) 98 Oxygen Delivery Method Room Air Oxygen Flow Rate 97.7 Intake Visit Reasons: 6 months Lipids, Prediabetes with DR Radhika Nicole Note: Anirudh presents in the office today for a 6 month follow up to cholesterol and prediabetes. Allergies No Known Allergies Allergy (Verified 12/08/24 09:22) Tobacco use date assessed: 12/08/24 Dental Screening Dental Screen Date: 12/08/24 Did you have a dental visit in the last 12 months?: Yes Did you have a dental problem in the last 6 months where you did not have access to dental care?: No Was dental information given to patient?: Patient has dentist [facility] Medical History Rectal cancer Allergy-induced asthma Pre-diabetes Fatty liver Elevated cholesterol Anemia Surgical History History of colonoscopy [place] teeth extracted No pertinent past surgical history Family History (Updated 12/08/24 @ 09:28 by Natalie Berry CMA) Mother Bile duct cancer Father Prostate cancer Melanoma Social History (Updated 12/08/24 @ 09:28 by Natalie Berry CMA) Housing: House Alcohol intake: current Alcohol intake frequency: holidays/special occasions only Comment: 4-6 / mos. 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 Cognitive needs: No Hearing needs: No Vision needs: No Questionnaire Thrive Questionnaire Date Thrive assessed: 05/15/24 I am a: Patient What is your living situation today?: I have a steady place to live Within the past 12 months, did the food you bought not last and you didn't have the money to get more?: Never true Within the past 12 months, did you worry whether your food would run out before you got money to buy more?: Never true Do you have trouble paying for medicines?: No Do you have trouble getting transportation to medical appointments?: No Do you have trouble paying your heating and electricity bill?: No Do you have trouble taking care of your child, family member or friend?: No Do you have trouble with day-to-day activities such as bathing, preparing meals, shopping, managing finances, etc.?: No Are you currently unemployed and looking for a job?: No Are you interested in more education?: No Please select the resources that you would like help with: None Currently or been in a relationship where the following occur: No concerns reported THRIVE Score: 0 ANTHONY-7 AMB Questionnaire ANTHONY-7 Date ANTHONY - 7 assessed: 06/07/24 Source: Developed by Drs. Dario Penn, Aniya Montero, Shelton Love and colleagues, with an educational nitesh from [employer]. Physical exam (Primary Care) Vital Signs: Last Vital Signs Temp 97.7 F 12/08/24 09:28 Pulse 88 12/08/24 09:28 Resp 16 12/08/24 09:28 BP 114/74 12/08/24 09:28 Pulse Ox 98 12/08/24 09:28 Oxygen Delivery Method Room Air 12/08/24 09:28 Oxygen Flow Rate 97.7 12/08/24 09:28 BMI result Body Mass Index 23.6 Tobacco/Smoking Status: Tobacco use Status Tobacco use date assessed 12/08/24 12/08/24 09:32 Patient Tobacco Use Status Never used Tobacco 12/08/24 09:28 e-Cigarette/Vaping Use Never Used 12/08/24 09:28 Thrive Assessment: Date of Thrive Assessment Date Thrive assessed 05/15/24 12/08/24 09:22 Currently or been in a relationship where the following occur: No concerns reported Results AMB Hemoglobin A1c AMB Hemoglobin A1c 6.1 % Last Edit by Natalie Berry CMA on 12/08/24 09:40 Results Reviewed Results Reviewed: Laboratory Last Values Hgb A1c (Clinic) 6.1 % (4.0-6.0) H 12/08/24 09:34 Coding Level of Care Code Est Pt Level 3 (41722) Diagnoses Prediabetes R73.03 Assessment & Plan Assessment & Plan (1) Prediabetes: Code(s): R73.03 - Prediabetes Category: Medical Plan: A1c climbed 6.1% Continue working on diet lower in sugars and starches Plan Patient was seen in April for blood in stool was referred to Gastroenterology. Subsequently was referred to general surgery and colonoscopy revealed rectal cancer Patient was referred to [facility] colorectal specialist and concurrently, patient also sought [facility] colorectal specialists He is opting to follow recommendations from [facility]. MRI of pelvis which I do not have available today showed local lymph node involvement. Patient has been started on chemotherapy Chemo: 2 infusions / 4 weeks x 3 cycles via port. Oxilloplatin Finishes chemotherapy Dec 26 and has follow-up MRI to eval response If reduction of tumor size is at least 20% he can forego Radiation. Following radiation if necessary or without radiation, will undergo surgery Temp Ileostomy planned. ---- Patient notes he is tolerating chemotherapy fairly well. He is in good spirits and declines referral to therapist or need for medications - denies anxiety or depression. Staying involved with family and still working. I let him know he can contact me at any time if needs any additional help. Will request notes from [facility] and [facility] Offered follow-up in a month but patient would like to follow-up 3 months. He will call sooner needs anything. Orders: Orders Lipid Panel Today Z00.00 - Encounter for general adult medical examination without abnormal findings Comprehensive [place]. Panel Fast Today Z00.00 - Encounter for general adult medical examination without abnormal findings Prostate Specific Antigen Scr Today Z12.5 - Encounter for screening for malignant neoplasm of prostate Microalbumin, Random (w Creat) Today I10 - Essential (primary) hypertension UA CC w/rflx Micro + Cult Today Z00.00 - Encounter for general adult medical examination without abnormal findings AMB Hemoglobin A1c Today R73.03 - Prediabetes Free T4 (Free Thyroxine) Today E03.9 - Hypothyroidism, unspecified Thyroid Stimulating Hormone Today E03.9 - Hypothyroidism, unspecified Triiodothyronine T3 Total Today E03.9 - Hypothyroidism, unspecified Complete Blood Count Auto Diff Today Z00.00 - Encounter for general adult medical examination without abnormal findings
[2024-12-08 09:28] VITALS: BP 114/74; PULSE 88; RESP 16; TEMP 36.5; O2SAT 98; BMI 23.6
--- OUTSIDE RECORDS SUMMARY | 2024-12-08 10:15 | XMS_ITS | Clinical Summary ---
Author Organization [facility] Address [address] [place] [address] Care Team Providers Care Cra Name Role Phone Dorene Cardona Primary Care Provider [phone] Medications Medication Sig Dispensed Refills Start Date [...] Father melanoma, prost ate Early Maternal Grandfather [place] Heart disease Maternal Grandfather Cancer Mother Common bile taran t Early Paternal Grandfather [place] Heart disease Paternal Grandfather Alcohol abuse Sister [...] Cancer Screening (Colonoscopy) 07/09/2020 Influenza Vaccine (#1) 2024 DTap / Tdap / Td (2 - Td or Tdap) 09/21/2026 017 Pneumococcal Vaccine Aged Out No long er eligible based on patient's age to complete this topic RSV Ped < 20 months Aged Out No longe r eligible based on patient's age to complete this topic Care Teams Cra Relationship Specialty Start Date End Date Dorene Cardona DO PCP - General Family Medicine 05/12/17
--- OUTSIDE RECORDS SUMMARY | 2024-12-08 10:15 | XMS_ITS | Encounter Summary ---
Author Organization [facility] Address [address] [place] [phone] Phone Care Team Providers Care Gage Maker Name Role Phone Erik Dudley OD Unavailable [phone] Dorene Cardona DO Unavailable [phone] Marlo Montez MD Primary Care Provider Self-Referred, Patient Unavailable Unavailab Leia German MD, PhD Unavailable [phone] Eusebio Harrison MD, MPH Unavailable [phone] MD Unavailable Encounter Details Date Type Department Care Team (Late st Contact Info) Description 09/28/2024 Ancillary Orders Outside Imaging Leia Hayward MD, PhD [address] [place] [id number] [email or web address] Social History Tobacco Use Types Packs/Day Years Used Date Smoking Tobacco: Never Smokeless Tobacco: Never Alcohol Use Standard Drinks/Week Comments Yes 0 (1 standard drink = 0.6 oz pur e alcohol) Child or Family Care Answer Date Record ed Do you have problems with on e of the following making it difficult for you to work, study, or receive health care? No 09/27/2024 Education Answer Date Recorded Are you interested in help w ith more adult education (for example, completing high school, GED, job training, learning the Dive[place] language, technical skills, or developing parenting skills)? No 09/27/2024 Are you concerned about learning? Not on file 09/27/2024 No 09/27/2024 Yes 09/27/2024 Food Answer Date Recorded Within the past 6 months we worried whether our food would run out before we got money to buy more. Never True 09/27/2024 Within the past 6 months the food we bought just didn't last and we didn't have enough money to get more. Never True Residential Stability Answer Date Recor ded What is your housing situation today? I have jairo sing 09/27/2024 How many times have you move d in the past 12 months? Zero (I did not move) 09/27/2024 Paying for Meds Answer Date Recorded Do you have trouble paying for medicines? No 09/27/2024 Paying Utility Bills Answer Date Record ed Do you have trouble paying your heating or elect ricity bill? No 09/27/2024 Transportation Answer Date Recorded Has the lack of transportati on kept you from medical appointments or from getting medications? No 09/27/2024 Digital Access Answer Date Recorded No 07/19/2022 No 07/19/2022 Reliable internet access at home? Not on file 07/19/2022 Device with a working camera? Not on file Sex and Gender Information Value Date Recorded Sex Assigned at Male 09/27/2019 10:18 PM EDT Legal Sex Male 5:22 PM EST Gender Identity Male 09/27/2019 10:18 PM EDT Sexual Orientation Straight 09/27/2019 10 :18 PM EDT documented as of this encounter Plan of Treatment Upcoming Encounters Date Type Department Care Team (Late st Contact Info) Description 10/02/2025 7:50 AM EDT Office Visit [facility] [address] [place] [address] Grace Proctor MD [address] [place] [phone] [email or web address] documented as of this encounter Results * US Abdomen Outside (No Interpretation) (06/09/2024 12:00 AM EDT) Other Narrative VINCENT - 09/28/2024 2:25 PM EDT This study is for PACS storage only and not for interpretation. Leia Hayward MD, PhD IMG OUTSIDE IMAGING W/OUT INT ERPRETATION Final Result VINCENT documented in this encounter Visit Diagnoses Not on filedocumented in this encounter Care Teams Gage Maker Relationship Specialty Start Date End Date Marlo Montez MD [address] [place] [phone] PCP - General Family Medicine 09/22/24 Erik Dudley OD [address] [place] [address] Optometry 07/26/17 Dorene Cardona DO [address] [place] [phone] 07/26/17 Self-Referred, Patient 09/26/24 Leia Hayward MD, PhD [address] [place] [address] [address] [place] [address] [email or web address] Medical Oncology 09/26/24 Eusebio Harrison MD, MPH [address] [place] [address] [place] [address] [email or web address] Colon and Rectal Surgery 09/26/[address] MD [address] [place] [phone] [email or web address] Medical Oncology 8/5/25 documented as of this encounter Additional Source Comments The information contained in this document represents components of the legal health record. It is not the complete legal health record.[facility]
--- OUTSIDE RECORDS SUMMARY | 2024-12-08 10:15 | XMS_ITS | Patient Health Record ---
Author Organization [facility] Address [address] [place] [id number] Care Team Providers Care Complaint Manager Name Role Phone Harrison Caal Jr [phone] Reason For Referral No Information Plan Of Treatment No Information
--- OUTSIDE RECORDS SUMMARY | 2024-12-08 10:15 | XMS_ITS | Encounter Summary ---
Author Organization [facility] Address [address] [place] [phone] Phone Care Team Providers Care Plastic Cnc Machine Operator Name Role Phone Erik Dudley OD Unavailable Dorene Cardona DO Unavailable [phone] Marlo Montez MD Primary Care Provider Self-Referred, Patient Unavailable Unavailab Leia German MD, PhD Unavailable [phone] Eusebio Harrison MD, MPH Unavailable [phone] MD Unavailable Encounter Details Date Type Department Care Team (Late st Contact Info) Description 09/28/2024 Ancillary Orders Outside Imaging Leia Hayward MD, PhD [address] [place] [phone] [email or web address] Social History Tobacco Use Types Packs/Day Years [...] high school, GED, job training, learning the Polish language, technical skills, or developing parenting skills)? [...] Description 10/02/2025 7:50 AM EDT Office Visit [facility] [address] [place] [address] Grace Proctor MD [address] [place] [phone] [email or web address] documented as of this encounter Results * CT Abdomen/Pelvis Outside (No Interpretation) (08/22/2024 12:00 AM EDT) Other Narrative TEOFILO - 09/28/2024 2:23 PM EDT This study is for PACS storage only and not for interpretation. Leia Hayward MD, PhD IMG OUTSIDE IMAGING W/OUT INT ERPRETATION Final Result [email or web address] documented in this encounter Visit Diagnoses Not on filedocumented in this encounter Care Teams Plastic Cnc Machine Operator Relationship Specialty Start Date End Date Marlo Montez MD [address] [place] [phone] PCP - General Family Medicine 09/22/24 Erik Dudley OD [address] [place] [phone] Optometry 07/26/17 Dorene Cardona DO [address] [place] [phone] 07/26/17 Self-Referred, Patient 09/26/24 Leia Hayward MD, PhD [address] [place] [address] [address] [place] [address] [email or web address] 09/26/24 Eusebio Harrison MD, MPH [address] [place] [address] [place] [address] [email or web address] Colon and Rectal Surgery 09/26/[address] MD [address] [place] [address] [email or web address] Medical Oncology 09/26/24 documented as of this encounter Additional Source Comments The information contained in this document represents components of the legal health record. It is not the complete legal health record.[facility]
--- OUTSIDE RECORDS SUMMARY | 2024-12-08 10:15 | XMS_ITS | Clinical Summary ---
Author Organization [facility] Address [address] [facility] [address] [place] [phone] Phone Care Team Providers Care Jacquard Card Cutter Name Role Phone Erik Dduley OD Unavailable [phone] Dorene Cardona DO Unavailable [phone] Marlo Montez MD Primary Care Provider Self-Referred, Patient Unavailable Unavailab Wayne German MD, PhD Unavailable [phone] Eusebio Harrison MD, MPH Unavailable [phone] MD Unavailable Allergies No known active allergies Medications montelukast (SINGULAIR) 10 mg tablet Take 10 mg by mouth as needed. Active albuterol 90 mcg/actuation inhaler Inhale 2 puffs into the lungs as needed for wheezing. Active multivit-mineral s/folic acid (CENTRUM ADULTS ORAL) 07/15/2024 Active atorvastatin (LIPITOR) 40 MG tablet Take 40 mg by mouth daily. Active Active Problems Problem Noted Date Diagnosed Date Asthma 09/28/2024 Acquired hammer toe of right foot 09/28/2024 Hypertriglyceridemia 09/28/2024 Colorectal cancer 08/02/2024 Overview (09/28/2024): Symptoms (blood in stool) since late 2023; diagnosed with rectal cancer 08/02/24. Prediabetes 08/23/2019 Encounters Date Type Department Care Team Description 10/11/2024 2:30 PM EDT - 10/11/2024 11:59 PM EDT Hospital Encounter [facility], [address] [address] Discharge Disposition: Home or Self Care 09/29/2024 2:49 PM EDT - 09/29/2024 11:59 PM EDT Hospital Encounter [facility], [address] [address] Discharge Disposition: Home or Self Care 09/29/2024 Orders Only [facility], [address], 10th [place] [address] Wayne Hayward MD, PhD Rectal cancer (Primary Dx) 09/28/2024 4:00 PM EDT - 09/28/2024 11:59 PM EDT Hospital Encounter Department of Radiation Oncology [address] [address] Giancarlo Daniels MD, PhD Discharge Disposition: Home or Self Care 09/28/2024 3:30 PM EDT Office Visit [facility] General & GI Surgery [address] [facility] [place] [address] Eusebio Harrison MD, MPH Malignant neoplasm of rectum (Primary Dx) 09/28/2024 1:30 PM EDT Office Visit [facility], [facility] [address] [facility] 4th [place] [address] Wayne Hayward MD, PhD Rectal adenocarcinoma (Primary Dx) 09/28/2024 Ancillary Orders DF IMG OUTSIDE IMG [address] [place] [id number] Wayne Hayward MD, PhD 09/28/2024 Ancillary Orders DF IMG OUTSIDE IMG [address] [place] [address] Wayne Hayward MD, PhD 09/28/2024 Ancillary Orders DF IMG OUTSIDE IMG [address] [place] [id number] Wayne Hayward MD, PhD 09/28/2024 Ancillary Orders Outside Imaging Wayne Hayward MD, PhD 09/28/2024 Ancillary Orders Outside Imaging Wayne Hayward MD, PhD 09/28/2024 Ancillary Orders Outside Imaging Wayne Hayward MD, PhD 09/28/2024 Orders Only [facility], [facility] [address] [facility], [address] [place] [address] Wayen Hayward MD, PhD Malignant neoplasm of colon, unspecified part of colon (Primary Dx) 09/28/2024 Documentation [facility], [facility] [address] [facility], 10th [place] [address] Renee Esquivel 09/27/2024 Ancillary Orders DF IMG OUTSIDE IMG [address] [place] [phone] Wayne Hayward MD, PhD 09/12/2024 Ancillary Procedure [facility] IM[facility] OUTSIDE IMG [address] [place] [id number] Wayne Hayward MD, PhD from Last 3 Months Immunizations Immunization Administration Dates Next Due COVID-19 (Pre-12/14) Pfizer Vaccine, mRNA, PF ,05/30/2020 Family History Medical History Relation Comments Cancer Father Cancer Mother Alzheimer's disease Paternal Grandmother Respiratory distress Paternal Grandmother Alcohol abuse Sister Relation Status Comments Father Mother Paternal Grandmother Sister Social History Tobacco Use Types Packs/Day Years Used Date Smoking Tobacco: Never Smokeless Tobacco: Never Tobacco Cessation:Counseling Given: No Alcohol Use Standard Drinks/Week Comments Yes 0 [...] high school, GED, job training, learning the Georgian language, technical skills, or developing parenting skills)? [...] Orientation Straight 09/27/2019 10 :18 PM EDT Last Filed Vital Signs Vital Sign Reading Time Taken Comments Blood Pressure 157/79 09/28/2024 12:58 PM EDT MD Hayward Notified Pulse 69 09/28/2024 12:58 PM EDT Temperature 36.2 C (97.2 F) 09/28/2024 12:58 PM EDT Respiratory Rate 16 09/28/2024 12:5 8 PM EDT Oxygen Saturation 99% 09/28/2024 12: 58 PM EDT Inhaled Oxygen Concentration - - Weight 75 kg (165 lb 5.5 oz) 09/28/2024 12:58 PM EDT Height 172.4 cm (5' 7.87 ) 09/28/2024 1 2:58 PM EDT Body Mass Index 25.23 09/28/2024 12:58 PM EDT Plan of Treatment Upcoming Encounters Date Type Department Care Team (Late st Contact Info) Description 10/02/2025 7:50 AM EDT Office Visit [facility] [address] [place] [address] Grace Proctor MD [address] [place] [address] [email or web address] Health Maintenance Due Date Last Done Comments LIPID PANEL 1975 HEPATITIS C SCREENING 07/09/1993 HIV ONE-TIME SCREENING (18-65 YEARS) 07/09/1993 PNEUMOCOCCAL VACCINES (0-49 years) (1 of 2 - PCV) 07/09/1994 SCREENING FOR DIABETES 01/07/2015 01/08/2012 COLOGUARD 07/09/2020 COLONOSCOPY 07/09/2020 COLORECTAL CANCER SCREENING 07/09/2020 FIT TEST 07/09/2020 FOBT 07/09/2020 SIGMOIDOSCOPY 07/09/2020 VIRTUAL COLONOSCOPY 07/09/2020 INFLUENZA VACCINE (#1) 2024 , 12/05/2021, 12/02/2020, Additional history exists COVID-19 VACCINE ( season) 2024 01/13/2021, 06/20/2020, 05/30/2020 DEPRESSION SCREENING 09/27/2025 09/27/2024 Adult Td,Tdap Booster 09/21/2026 09/21/2016, 016 SMOKING STATUS SCREENING (Once After 26 Yrs) Completed 11/23/2023 HEPATITIS A VACCINES Aged Out No long er eligible based on patient's age to complete this topic HIB VACCINES Aged Out No longer eligi ble based on patient's age to complete this topic MENINGOCOCCAL VACCINES (ACWY) Aged Out No longer eligible based on patient's age to complete this topic MENINGOCOCCAL VACCINES (B) Aged Out N o longer eligible based on patient's age to complete this topic Medical Devices Not on file Procedures Procedure Name Priority Date/Time Associated Diagnosis Comments PAIRED TUMOR/GERMLINE - TUMOR ORDER (REQUIRED) Routine 10/11/2024 2:31 PM EDT Malignant neoplasm of colon, unspecified part of colon RESEARCH PAIRED TUMOR/GERMLINE ONCOPANEL Routine 10/11/2024 12:00 AM EDT PAIRED TUMOR/GERMLINE - BLOOD ORDER (REQUIRED) Routine 09/28/2024 2:21 PM EDT Malignant neoplasm of colon, unspecified part of colon OUTSIDE LAB 09/22/2024 OUTSIDE LAB 09/22/2024 OUTSIDE LAB 09/22/2024 OUTSIDE LAB 09/22/2024 OUTSIDE LAB 09/22/2024 MRI PELVIS (BONE) OUTSIDE (NO INTERPRETATION) Routine 09/12/2024 12:00 AM EDT OUTSIDE IMAGING 09/12/2024 OUTSIDE IMAGING 09/12/2024 from Last 3 Months Results * Paired Tumor/Germline - Tumor Order (Required) (10/11/2024 2:31 PM EDT) Specimen Status Request received [facility] Report Status SEE PATHOLOGY REPORT [facility] Other 10/11/2024 2:31 PM EDT 10/11/2024 2:36 PM EDT Wayne Hayward MD, PhD NON SCHEDULABLE PATHOLOGY Fin al Result Performing Organization Address City/State/RUST Co de Phone Number [facility] [address] [place] [phone] * Research Paired Tumor/Germline OncoPanel (10/11/2024 12:00 AM EDT) Results Test Description - OncoPanel Paired Tumor/Germline Specimen type used for germline testing - Peripheral blood PASS There are [id number] aligned, high-quality reads for this tumor specimen with a mean of 408 reads across all targeted exons and 99% of all exons having more than 30 reads. Mutational Mountain: Tumor Mutational Mountain/Megabase: 12.167 This is higher than 88% of all Colorectal Cancer cases sequenced by Paired Tumor/Germline OncoPanel. This is higher than 93% of all Profile cases sequenced by Paired Tumor/Germline OncoPanel. 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 Tier 2 variants: FBXW7 c.1394G>A (p.R465H), exon 9 - in 39% of 644 reads# Germline Variants with Potential Therapeutic Implications: No single nucleotide variants or small insertions/deletions with potential therapeutic implications were detected in germline analysis. Please refer to the separate [facility] Germ[facility] report for full germline analysis. Structural Variants: Tier 1 variants: None identified. Tier 2 variants: None identified. Copy Number Variants: No actionable copy number variants identified. ADDITIONAL FINDINGS: Investigational Mutational Signatures (see methods): Mutational signature analysis was performed, but no additional investigational signatures were detected. Investigational Variants Mutations: Tier 3 variants: APC c.4120G>T (p.E1374*), exon 16 - in 40% of 652 reads## APC c.3496del (p.M1887Kjl*16), exon 16 - in 14% of 469 reads## YIQ7T1S c.547C>T (p.R183W), exon 5 - in 34% of 467 reads## RAF1 c.770C>T (p.S257L), exon 7 - in 27% of 581 reads## TP53 c.517G>T (p.V173L), exon 5 - in 48% of 345 reads## Tier 4 variants: CARD11 c.812G>A (p.R271Q), exon 6 - in 15% of 515 reads### EXT2 c.1517G>A (p.R506Q), exon 10 - in 36% of 661 reads### GNAS c.334G>A (p.E112K), exon 1 - in 50% of 842 reads### PALB2 c.1471G>A (p.A491T), exon 4 - in 16% of 719 reads### PTCH1 c.1231G>T (p.V411F), exon 9 - in 7% of 397 reads### SMARCA4 c.352C>T (p.Q118*), exon 2 - in 19% of 429 reads### SOX9 c.658G>T (p.E220*), exon 2 - in 45% of 497 reads### UIMC1 c.1349T>C (p.L450P), exon 9 - in 5% of 328 reads### USP8 c.1215C>T (p.U7724X), exon 20 - in 48% of 548 reads### WHSC1 c.1543G>A (p.E515K), exon 6 - in 5% of 259 reads### Structural Variants: Tier 3 variants: None identified. Tier 4 variants: Rearrangement - EZH2 exon 15 (chr7:[id number]) :: intergenic region (chr15:[id number]) Rearrangement - RAD21 exon 14 (chr8:[id number]) :: RAD21 exon 14 (chr8:[id number]) Copy Number Variants: Cytoband/Size Type of Alteration Genes 1p36.11-p36.33 Loss ARID1A, ID3, SDHB, KIF1B, MTOR, O6pql26 1q43 Loss AKT3 3 Chromosomal level Loss MITF, BAP1, PBRM1, COL7A1, RHOA, SETD2, CTNNB1, MLH1, MYD88, XPC, PPARG, RAF1, FANCD2, OGG1, VHL, NFKBIZ, CBLB, POLQ, GATA2, MBD4, TOPBP1, FOXL2, ATR, MECOM, PRKCI, TERC, PIK3CA, SOX2, ETV5, BCL6 4p16.3 Loss FGFR3, WHSC1 4q35.2 Gain FAT1 6p21.1-p21.31 Gain CCND3, NFKBIE, POLH, VEGFA, CDKN1A, PIM1, RNF8, FANCE 6q22.1 Gain ROS1 6q23.3 Gain MYB, TNFAIP3 7p Arm level Gain EGFR, IKZF1, JAZF1, ETV1, PMS2, RAC1, CARD11 7q34 Gain PRSS1 8p11.21-p11.23 Gain KAT6A, POLB, FGFR1, XEPD7I3 9j21-p79.1 Loss NRG1, WRN, NKX3-1, PTK2B, GATA4, NEIL2 8q Arm level Gain PRKDC, MYBL1, TCEB1, NBN, FHLH7K7, RAD54B, RSPO2, EXT1, RAD21, MYC, RECQL4 9 Chromosomal level Loss PAX5, FANCG, RMRP, CDKN2A, CDKN2B, MTAP, CD274, JAK2, SFLA6CX8, DOCK8, GNAQ, NTRK2, FANCC, PTCH1, GALNT12, XPA, KLF4, TAL2, ENG, ABL1, TSC1, BRD3, NOTCH1 10 Chromosomal level Loss KGOBK8V, GATA3, RET, ERCC6, TET1, PRF1, KAT6B, BMPR1A, FAS, KLLN, PTEN, NT5C2, SUFU, SMC3, TCF7L2, HABP2, FGFR2 11 Chromosomal level Gain DDB2, EXT2, LMO2, WT1, FANCF, CDKN1C, LMO1, H19, HRAS, IGF2, KCNQ1, DDB1, SDHAF2, MEN1, MUS81, RELA, CCND1, MRE11A, YAP1, VAIBHAV, SDHD, USP28, BCDXDX62, CBL, HMBS, KMT2A, CHEK1 13q Arm level Gain CDK8, FLT1, FLT3, BRCA2, RB1, DIS3, ERCC5, LIG4 14q21.1 Gain FOXA1 15q Arm level Loss FAN1, GREM1, BUB1B, MGA, RAD51, YA95AC5, B2M, USP8, MAP2K1, PML, NEIL1, FAH, NTRK3, BLM, FANCI, IDH2, IGF1R 17p Arm level Loss FLCN, MAP2K4, AURKB, TP53, RPA1 17q21.31-q21.32 Gain ETV4, HOXB13 18q Arm level Loss GATA6, RBBP8, SS18, SETBP1, SMAD2, SMAD4, BCL2 19p13.11 Loss KLF2 20p Arm level Loss MCM8 20q Arm level Gain ASXL1, BCL2L1, MAFB, AURKA, WXO407, GNAS, CDH4 22q11.21-q12.1 Loss CRKL, MAPK1, SMARCB1, CHEK2 22q13.2 Loss EP300, XRCC6 Xp11.3 Loss KDM6A [facility] Results\Inte rpretation ACTIONABLE VARIANTS (SOMATIC): FBXW7 c.1394G>A (p.R465H) - #FBXW7 is a tumor suppressor gene and a component of the ubiquitin-protein ligase complex that downregulates the prosurvival protein MCL1. FBXW7 p.R465H is a hotspot for somatic mutation and may confer loss of function. Some studies suggest that loss of FBXW7 may confer resistance to antitubulin chemotherapeutics such as Taxol and vincristine (Pubmed: 05213718, [id number]) and could be an inclusion criteria in PKMYT1 inhibitor clinical trials. INVESTIGATIONAL VARIANTS (SOMATIC): APC c.3496del (p.S3196Dkk*16) - ##APC is a tumor suppressor gene that regulates the Wnt signaling pathway. Recurrent APC mutations have been reported in colorectal adenocarcinoma and contribute to tumorigenesis (PMID: 19795639). This frameshift variant is predicted to result in loss of protein function. APC c.4120G>T (p.E1374*) - ##APC is a tumor suppressor gene that regulates the Wnt signaling pathway. Recurrent APC mutations have been reported in colorectal adenocarcinoma and likely contribute to tumorigenesis (PMID: 76917891). This nonsense variant likely leads to a loss of function. GSB6A7S c.547C>T (p.R183W) - ##UXW0R7G encodes the constant regulatory subunit of protein phosphatase 2, a serine/threonine phosphatase that regulates cell growth and division. Mutations in ZTV0Z0L have been reported at low frequency in a variety of tumor types. This missense variant, PPY4Y1N p.R183W, occurs at a mutational hotspot in the gene and has been shown in vitro to have reduced phosphatase activity (PMID: 32278935). RAF1 c.770C>T (p.S257L) - ##RAF1 is a member of the ZHEN family and contributes to signaling through the MONTSE/ZHEN/MEK pathway. Although RAF1 is not known to be recurrently altered in colorectal adenocarcinoma, other activating mutations in the MONTSE/ZHEN/MAPK pathway are very common in colorectal adenocarcinoma. This variant, RAF1 p.S257L, is present at a mutational hotspot of RAF1 and is associated with activation of MEK and ERK (PMID: 46169871). TP53 c.517G>T (p.V173L) - ##Tumor protein p53 (TP53) gene is a tumor suppressor gene frequently mutated in cancers. Loss of function mutations are associated with genomic instability and poor prognosis in many tumor types. ### These variants may have a role in cancer biology, or may have shown potential future clinical application in in vitro studies, but as yet no clinical role for this mutation has been established as siookizd-fr-zvxh in the published medical literature. STRUCTURAL VARIANTS: COPY NUMBER VARIANTS (CNV): CNV analysis shows multiple low-level copy gains and losses. Single copy deletion of ARID1A at 1p36.11: ARID1A encodes a member of the SWI/SNF chromatin remodeling complex. Recurrent mutations (and/or loss of function alterations) of ARID1A have been reported in colorectal adenocarcinoma and may contribute to cancer biology. Single copy deletion of FANCD2 at 3p25.3: FANCD2 is essential for DNA damage repair; FANCD2-deficient cells demonstrate impaired VAIBHAV-Chk2 and ATR-Chk1 activation. The NV8Y-vBJF-XXP pathway appears to promote DNA double strand break repair by sustaining FANCD2 activity (PMID:34374593). Pathogenic germline alterations are associated with Fanconi anemia in an autosomal recessive manner. This case shows subgenic deletion that would be predicted to lead to loss of function. This assay does not discriminate between somatic and germline events; clinical correlation is advised and dedicated germline analysis should be considered if clinically indicated. Single copy deletion of MLH1 at 3p22.2: MLH1 is a tumor suppressor gene involved in DNA mismatch repair. Mutations or deletions in MLH1 are associated with a hereditary cancer predisposition syndrome when present in the germline but are also observed as sporadic events in tumors. This assay does not distinguish between germline and somatic alterations. Single copy deletion of ATR at 3q23: ATR is a DNA damage response kinase required for cancer cell survival during oncogene-induced replication stress. Loss of function mutations in the ATR gene are common in several tumor types, including colon adenocarcinoma and may contribute to tumorigenesis (PMID: 75277959). Single copy deletion of MTAP at 9p21.3: The MTAP gene encodes methylthioadenosine phosphorylase, a estrada enzyme in the adenine and methionine salvage pathway. The MTAP gene is frequently deleted in human cancers because of its chromosomal proximity to the tumor suppressor gene CDKN2A. Research suggests loss of MTAP confers a selective dependence on PRMT5, which can be pharmacologically exploited with PRMT5 inhibitors (PMID: 59518014, 93184106, 45403238). Single copy deletion of CDKN2A at 9p21.3: CDKN2A is a tumor suppressor gene involved in cell cycle regulation. Loss of tumor suppressor gene CDKN2A (p16, aka INK4a) is a common event in cancer and leads to cell cycle dysregulation via disinhibition of CDK4/CDK6. Targeted treatment with CDK4/6 inhibitors in CDKN2A/B-mutated tumors have shown promise in multiple solid tumor types (PMID: 59172563, 28306811, 71317620, 03702340). Single copy deletion of PTEN at 10q23.31: PTEN is a negative regulator of the PI3K/AKT signaling pathway. Inactivating alterations in PTEN have been identified in many cancers, including colorectal adenocarcinomas (PMID: 85513504). This single copy deletion may contribute to tumor biology in the appropriate context. Single copy deletion of TCF7L2 at 10q25.2: TCF7L2 interacts with the Wnt signaling pathway. Recurrent mutations in TCF7L2 have been reported in colorectal adenocarcinoma and may contribute to tumor biology (PMID: 25217444). This single copy deletion of TCF7L2 likely leads to loss of function. Single copy deletion of B2M at 15q21.1: B2M is a component of the major histocompatibility complex. Recurrent inactivating mutations or copy number loss of B2M have been described in colorectal and other tumors where they have been proposed as a possible mechanism of escape from immune recognition (PMID: 7539828 and PMID: 67360097). Single copy deletion of TP53 at 17p13.1: TP53 is a tumor suppressor gene that is recurrently mutated in a broad variety of cancer types including colon adenocarcinoma. Single copy deletion of SMAD2 at 18q21.1: SMAD2 is a signal transduction molecule of the TGFB pathway. Recurrent mutations or copy number loss in SMAD2 have been reported in colorectal adenocarcinoma and may contribute to cancer biology (PMID: 58589520). Single copy deletion of SMAD4 at 18q21.2: SMAD4 is a tumor suppressor gene important in regulation of the TGFB signaling pathway. Acquired (somatic) loss of SMAD4 function is implicated in tumorigenesis in a variety of tumor types, including colorectal adenocarcinomas. TEST INFORMATION: This test has been validated and performed in a clinical laboratory that is certified by CLIA (CLIA certificate: [id number]), under CLIA guidelines for clinical testing. This test was developed, and its performance characteristics determined by the [facility], [facility]. It has not been cleared or approved by the U.S. Food and Drug Administration. The FDA has determined that such clearance or approval is not necessary. For detailed methodology and protocol, please contact the [facility] ([phone]). LABORATORY METHODS: OncoPanel is a cancer genomic assay designed to detect somatic mutations, copy number variations and structural variants in tumor DNA extracted from fresh, frozen or formalin-fixed paraffin-embedded samples. This assay surveys exonic DNA sequences of 447 cancer genes and 191 regions across 60 genes for rearrangement detection. DNA is isolated from tissue containing at least 20% tumor nuclei and analyzed by massively parallel sequencing using a solution-phase Agilent SureSeSkyengt hybrid capture kit and an Illumina APTwater sequencer. This assay may be performed with tumor only, in which setting likely somatic variants are prioritized for review and interpretation and most germline variants are removed bioinformatically, but a subset of germline variants occurring with the full panel of targeted genes may be included in the report. This assay may also be performed as a Paired Tumor: Germline test, in which case genomic DNA extracted from the patient's blood specimen is sequenced in parallel with the tumor specimen and germline variants detected in the blood specimen are generally excluded from the somatic report. However, germline variants with potential therapeutic importance are reported in the somatic report when they occur in the following genes: ALK, VAIBHAV, BARD1, BRCA1, BRCA2, CHEK2, DICER1, EGFR, KIT, MET, MLH1, MSH2, MSH6, PALB2, PMS2, PTCH1, RB1, RET, TP53 The complete list of 447 genes is as follows: ABCB11,ABL1,ACVR1,AKT1 ,AKT2,AKT3,ALK,APC,AR, ARAF,HQQGSB33,ECHUEB09 ,ARID1A,ARID1 B,ARID2,ASXL1,VAIBHAV,ATR, ATRX,AURKA,AURKB,AXIN2 ,JULIET,B2M,BABAM1,BAP1,B ARD1,BCL11B,B CL2,BCL2L1,OSL3K61,BCL 6,BCOR,BCORL1,BLM,BMPR 1A,BRAF,BRCA1,BRCA2,BR CC3,BRD3,BRD4 ,PJ,BRIP1,BUB1B,C17OR F70,A16ATL65,T9NOG31,C ALR,CARD11,CASP8,CBFA2 T3,CBFB,CBL,C BLB,CCND1,CCND2,CCND3, CCNE1,CD274,CD79B,CDC7 3,CDH1,CDH4,CDK12,CDK4 ,CDK6,CDK8,CD KN1A,CDKN1B,CDKN1C,CDK N2A,CDKN2B,CDKN2C,CEBP A,CHEK1,CHEK2,CIC,CIIT A,COL7A1,CREB BP,CRKL,CRLF2,CRTC1,CS F3R,CTCF,CTLA4,CTNNA1, CTNNB1,CUX1,CXCR4,CYLD ,DAXX,XITWJ3S ,DDB1,DDB2,DDR2,DICER1 ,DIS3,DIS3L2,DKC1,DMC1 ,DNMT3A,DOCK8,EGFR,EGL N1,ELANE,EME1 ,ENG,EP300,EPCAM,ERBB2 ,ERBB3,ERBB4,ERCC1,ERC C2,ERCC3,ERCC4,ERCC5,E RCC6,ERG,ESR1 ,ETV1,ETV4,ETV5,ETV6,E WSR1,EXO1,EXT1,EXT2,EZ H2,FAH,IBN293Y,FAM46C, FAN1,FANCA,FA NCB,FANCC,FANCD2,FANCE ,FANCF,FANCG,FANCI,FAN CL,FANCM,FAS,FAT1,FBXW 7,FGFR1,FGFR2 ,FGFR3,FGFR4,FH,FLCN,F LT1,FLT3,FLT4,FOXA1,FO XL2,FUS,GALNT12,GATA2, GATA3,GATA4,G ATA6,GBA,GEN1,GLI1,GLI 2,GNA11,GNAQ,GNAS,GPC3 ,GREM1,H19,H3F3A,H3F3B ,HABP2,HELQ,H FE,YPRJ1V4S,OCTE0B0J,H MBS,HNF1A,HOXB13,HRAS, ID3,ID4,IDH1,IDH2,IGF1 R,IGF2,IKZF1, IL7R,ITK,JAK1,JAK2,YONATHAN 3,JAZF1,KAT6A,KAT6B,TRINA NQ1,KDM5A,KDM5C,KDM6A, KDR,KEAP1,KIF 1B,KIT,KLF2,KLF4,KLLN, KMT2A,KMT2D,KRAS,LIG4, LMO1,LMO2,MAF,MAFB,MAP 2K1,MAP2K2,MA P2K4,MAP3K1,MAPK1,MAX, MBD4,MCL1,MCM8,MDM2,MD M4,MECOM,MED12,MEF2B,M EN1,MET,MGA,M ITF,MLH1,MLH3,MPL,MRE1 1A,MSH2,MSH6,MTA1,MTAP ,MTOR,MUS81,MUTYH,MYB, MYBL1,MYC,MYC L1,MYCN,MYD88,NBN,EDUARDO 1,NEIL2,NEIL3,NF1,NF2, NFE2L2,NFKBIA,NFKBIE,N FKBIZ,NKX2-1, NKX3-1,NOTCH1,NOTCH2,N OTCH3,NPM1,NR0B1,NRAS, NRG1,NSD1,NT5C2,NTHL1, NTRK1,NTRK2,N TRK3,OGG1,PALB2,PARK2, PAX5,PAXIP1,PBRM1,PDCD 1LG2,PDGFRA,PDGFRB,PHF 6,PHOX2B,PIK3 C2B,PIK3CA,PIK3R1,PIM1 ,PML,PMS1,PMS2,PNKP,PO LB,POLD1,POLE,POLH,RADHA Q,POT1,PPARG, PPM1D,BJA1H5C,PRDM1,CO F1,YOFKQ3H,PRKCI,PRKDC ,PRSS1,PTCH1,PTEN,PTK2 B,PTPN11,PTPN 14,PVRL4,QKI,RAC1,RAD2 1,RAD50,RAD51,RAD51C,R AD51D,RAD52,RAD54B,ZHEN 1,HAIDER,RASA1, RB1,RBBP8,RBM10,RECQL4 ,REL,RELA,RET,RHBDF2,R HEB,RHOA,RHOH,RHOT1,RI CTOR,RIF1,RIN T1,RIT1,RMRP,RNF43,RNF 8,ROS1,RPA1,RPTOR,RSPO 2,RSPO3,RUNX1,FBLP1H9, SBDS,SDHA,SDH AF2,SDHB,SDHC,SDHD,SER PINA1,SETBP1,SETD2,SF3 B1,SH2B3,SH2D1A,SLC25A 13,DXN35J0,SL X1A,SLX1B,SLX4,SMAD2,S MAD4,SMARCA4,SMARCB1,S MARCE1,SMC3,SMO,SOCS1, SOS1,SOX2,SOX 9,SPOP,SRSF2,SRY,SS18, STAG2,STAT3,STAT6,STK1 1,SUFU,SUZ12,TAL1,TAL2 ,NIRU,TCEB1,TC F3,TCF7L2,TDG,TERC,TER T,TET1,TET2,TFE3,TLX3, CMFV713,TMPRSS2,TNFAIP 3,TOPBP1,TP53 ,LR50ID3,TRAF3,TRAF7,T RIM37,TSC1,TSC2,TSHR,U 2AF1,UBE2T,UIMC1,UROD, USP28,USP8,VE GFA,VHL,WAS,WHSC1,WHSC 1L1,WRN,WT1,XPA,XPC,XP O1,XRCC1,XRCC2,XRCC3,X RCC4,XRCC5,XR CC6,YAP1,KHE113,ZNRF3, ZRSR2 191 regions across the following 60 genes are targeted for rearrangement detection: ABL1,ALK,BCL6,BIRC3,BR AF,CBFB,CIC,CIITA,CRTC 1,CRTC3,EGFR,ERG,ESR1, ETV4,ETV5,ETV 6,EWSR1,FGFR1,FGFR2,FG FR3,FIP1L1,FOXO1,FUS,J AK2,KMT2A,MET,MYB,MYBL 1,NAB2,NCOA2, NPM1,NR4A3,NRG1,NTRK1, NTRK2,NTRK3,NUTM1,NUP2 14,PDGFB,PDGFRA,PDGFRB ,PHF1,PML,PPA RG,RAF1,HAIDER,RELA,RET, ROS1,RSPO2,RSPO3,RUNX1 ,YGZ45B4,SS18,SUZ12,TM PRSS2,TP53,WW TR1,YAP1,YWHAE This test has been performed under an institutional research protocol (17-000/20-000) but has been validated and performed in a clinical laboratory that is certified by CLIA (CLIA certificate: [id number]), under CLIA guidelines for clinical testing. Accordingly, the [facility] Institutional Review Board has authorized the release of these test results, performed under this research protocol, into the patient's electronic medical record, so that they may be used for clinical management decisions, including determining eligibility for clinical trials. INTERPRETIVE METHODS: Somatic genetic alterations in oncogenes and tumor-suppressor genes contribute to the pathogenesis and evolution of human cancers. These alterations can provide diagnostic, prognostic and predictive information and stratify cancers for targeted therapeutic information. We classify these alterations into five tiers using the following guidelines: Tier 1: The alteration has well-established published evidence confirming clinical utility in this tumor type, in at least one of the following contexts: predicting response to treatment with an FDA-approved therapy; strongly supportive in establishing a definitive diagnosis; assessing prognosis; or conferring an inherited increased risk of cancer to this patient and family. Tier 2: The alteration may have clinical utility in at least one of the following contexts: selection of an investigational therapy in clinical trials for this cancer type; limited evidence of prognostic association; supportive of a specific diagnosis; proven association of response to treatment with an FDA-approved therapy in a different type of cancer; or similar to a different mutation with a proven association with response to treatment with an FDA-approved therapy in this type of cancer. Tier 3: The alteration is of uncertain clinical utility, but may have a role as suggested by at least one of the following: demonstration of association with response to treatment in this cancer type in preclinical studies (e.g., in vitro studies or animal models); alteration in a biochemical pathway that has other known, therapeutically-target able alterations; alteration in a highly conserved region of the protein predicted, in silico, to alter protein function; or selection of an investigational therapy for a different cancer type. Tier 4: The alteration is novel or its significance has not been studied in cancer. For tumor-only analysis, a subset of these alterations likely represent normal germline variants as the assay is not analyzed in conjunction with a matched normal from the same patient. Tier 5: The alteration has been determined to have no clinical utility, either for selecting therapy, assessing prognosis, establishing a diagnosis, or determining hereditary disease risk. These variants are not included in the report. Insufficient Coverage: If specified exon(s) have <50X coverage, that gene for that specific exon is considered to have insufficient coverage. Pertinent Negative: Specified exon(s) or codon(s) of interest for the given panel having sufficient coverage and no variants found. Copy Count Estimation: When the estimated number of copies for a CNV call is calculated as >= 6 copies, the report will include the number of copies instead of reporting high or low amplification. The copy estimate is the average number of copies in the sample, rounded to the nearest whole number, and is not adjusted for subclonal events. Importantly, the estimated copy number is a function of the subjective visual assessment of tumor purity(heterogeneity) made by a pathologist. As such, this copy number is an estimate, with an element of error. Copy number variants are called at the gene level; genes that are not on our assay but are present in the cytoband should not have the same copy alteration inferred. The following formula is used for the calculation, where Noc = Number of Copies, AGCR = Average Gene CopyRatio, and P = Tumor Purity:NoC = (2 * (AGCR -1)/P ) + 2) Tumor mutational burden (TMB): TMB is calculated by determining the number of non-synonymous somatic mutations that occur per megabase of exonic sequence data across all genes on the panel. Measurement of TMB may be less precise in tumors with a very low tumor content and can potentially be affected by the presence of rare germline variants that are not removed by population allele frequency-based filtering. The TMB for a case is reported as a percentile in relation to all prior Profile clinical and research cohort samples sequenced on the current version of [employer], as well as a percentile in relation to all tumors of that specific type. A tumor type-specific percentile is not provided for tumor types that have cumulatively been sequenced less than 10 times due to insufficient data for meaningful comparison. Structural Rearrangements: Svaba and Manta tools were used for detection of structural rearrangements/variati ons (SVs). Potential rearrangements and insertions/deletions identified by one or both algorithms in 191 DNA gene regions (across 60 genes) were manually reviewed for inclusion in the report. Detection of SVs in DNA is limited and the absence of a rearrangement should not be taken as absolute. Confirmation of the biological activation of a rearrangement using RNA or protein-based testing can be considered. For indel detection, Svaba/Manta thresholds were set to = 15 nucleotides for somatic samples and = 5 nucleotides for germline samples. Mismatch repair (MMR): MMR pathway status is evaluated by determining the number of small insertion/deletion events that occur in homopolymer regions within exonic sequence data across all genes on the panel, using an extension of a method previously developed in our laboratory (J Mol Diagn. 2017;19(1):84-91). Tumors with an elevated number of such events are classified as mismatch repair deficient (MMR-D) or microsatellite instability - high (MSI-H), while tumors with a low burden of such events are classified as mismatch repair proficient (MMR-P) or microsatellite stable (BOZENA). In some cases, it may not be possible to make a definitive determination about MMR pathway status. This may be due multiple factors, including low tumor content, suboptimal sequence quality, and the presence of another mutational signature. For these indeterminate cases, orthogonal testing via immunohistochemistry for mismatch repair protein expression or microsatellite instability testing by PCR should be considered. In tumor-only testing, for tumors with 16 or more mutations (9 or more in Tumor-Germline Testing), additional mutational signature analysis is performed based upon the pattern of nucleotide substitutions. Mutational signatures that can be detected using this approach include those associated with DNA damage due to ultraviolet light (UVA) exposure, tobacco smoke exposure, prior treatment with alkylating agents (including temozolomide), impaired POLE DNA polymerase function, and APOBEC enzyme dysregulation. The OncoPanel mutational signature detection tool is based upon previously published signatures derived from whole exome sequencing data (Opal et al. Nature 500:415-21 (2013)) and was refined by training on targeted exome sequencing data (Shannan may al. Nature Medicine 23, 003 7 13 (2017)). The reported mutational patterns reflect those observed in vitro following exposure to relevant mutagens. The presence of these signatures, as detected by the OncoPanel mutational signature tool, was further validated against clinicopathologic features in 738 OncoPanel samples including (1) origin at a sun-exposed site, (2) smoking history, (3) prior treatment with temozolomide, (4) concurrent POLE hotspot mutation, or (5) MMR deficiency as detected by OncoPanel. Mutational signature sensitivity ranges from 42 to 82% and specificity from 80 to > 99% relative to matched clinical features. However, extensive functional analysis has not been performed for validation and, therefore, these signatures should be interpreted as observed patterns consistent with the appropriate pathologic mechanism, but not definitive assertions. Failure to detect a mutational signature despite a relevant clinical context may result from low numbers of mutations identified by this targeted assay, low tumor content, and/or alternative mechanisms of tumorigenesis. If the reported mechanism is unexpected (i.e., a UV-signature in tumor arising at a visceral site), an appropriate clinical correlate should be identified before initiating a change in management. REFERENCES: Jessica et al. 2012. High-throughput detection of actionable genomic alterations in clinical tumor samples by targeted, massively parallel sequencing. Cancer Discov. 2(1):82-93. PMID: 32588282 Boogie SUTTON et al., 2016. Institutional implementation of clinical tumor profiling on an unselected cancer population. JCI Insight 2016; 1:w46558. PMID: 28107007 Lori Powell et al., 2016. Manta: rapid detection of structural variants and indels for germline and cancer sequencing applications. Bioinformatics. 32(8):6162-0849. PMID: 25032674 Cuate REY et al., 2017. Validation of OncoPanel: A Targeted Next-Generation Sequencing Assay for the Detection of Somatic Variants in Cancer. Arch Pathol Lab Med. 141(6):751-758. PMID: 28537090 Franck CARTER et al., 2017. Detection of mismatch repair deficiency and microsatellite instability in colorectal adenocarcinoma by targeted next-generation sequencing. J Mol Diag.19:84-91. PMID: 56255177 Nanette CARTER et al., 2018. SvABA: genome-wide detection of structural variants and indels by local assembly. Genome Res. 28(4):581-591. PMID: 15918177 By his/her signature below, the senior physician certifies that he/she personally reviewed all the laboratory data of the described specimen(s) and rendered or confirmed the diagnosis(es) related thereto. [facility] Procedure Comments ProcOncoPanel - [facility] Lysis of cells prior to extraction (Molecular Dx) - [facility] Microdissection - [facility] Report Accession No: [id number] Date: 1975 Sex: Male [facility] Department of Pathology [address] [place] [address] License No.: [id number] Economics Consultant: Dr. Shivani Hyman Physician: WAYNE HAYWARD MD, PhD Specimen Submitted: Molecular Procedure Date: 10/11/2024 Pathologist: Kinza Ding, Ph.D. CLINICAL DATA: Clinical Diagnosis: ==== ONCOPANEL ==== Accession numbers on blocks submitted - [id number] (A1) ([id number]) Original Pathologic Diagnosis - COAD (Colon Adenocarcinoma) Estimated percentage of neoplastic cells in submitted specimen - 70% RESULT: Test Description - OncoPanel Paired Tumor/Germline Specimen type used for germline testing - Peripheral blood PASS There are [id number] aligned, high-quality reads for this tumor specimen with a mean of 408 reads across all targeted exons and 99% of all exons having more than 30 reads. Mutational Mountain: Tumor Mutational Mountain/Megabase: 12.167 This is higher than 88% of all Colorectal Cancer cases sequenced by Paired Tumor/Germline OncoPanel. This is higher than 93% of all Profile cases sequenced by Paired Tumor/Germline OncoPanel. 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 Tier 2 variants: FBXW7 c.1394G>A (p.R465H), exon 9 - in 39% of 644 reads# Germline Variants with Potential Therapeutic Implications: No single nucleotide variants or small insertions/deletions with potential therapeutic implications were detected in germline analysis. Please refer to the separate [facility] [place] Germ[facility] report for full germline analysis. Structural Variants: Tier 1 variants: None identified. Tier 2 variants: None identified. Copy Number Variants: No actionable copy number variants identified. ADDITIONAL FINDINGS: Investigational Mutational Signatures (see methods): Mutational signature analysis was performed, but no additional investigational signatures were detected. Investigational Variants Mutations: Tier 3 variants: APC c.4120G>T (p.E1374*), exon 16 - in 40% of 652 reads## APC c.3496del (p.U9941Gvf*16), exon 16 - in 14% of 469 reads## IYF9W4K c.547C>T (p.R183W), exon 5 - in 34% of 467 reads## RAF1 c.770C>T (p.S257L), exon 7 - in 27% of 581 reads## TP53 c.517G>T (p.V173L), exon 5 - in 48% of 345 reads## Tier 4 variants: CARD11 c.812G>A (p.R271Q), exon 6 - in 15% of 515 reads### EXT2 c.1517G>A (p.R506Q), exon 10 - in 36% of 661 reads### GNAS c.334G>A (p.E112K), exon 1 - in 50% of 842 reads### PALB2 c.1471G>A (p.A491T), exon 4 - in 16% of 719 reads### PTCH1 c.1231G>T (p.V411F), exon 9 - in 7% of 397 reads### SMARCA4 c.352C>T (p.Q118*), exon 2 - in 19% of 429 reads### SOX9 c.658G>T (p.E220*), exon 2 - in 45% of 497 reads### UIMC1 c.1349T>C (p.L450P), exon 9 - in 5% of 328 reads### USP8 c.3235C>T (p.C0226Y), exon 20 - in 48% of 548 reads### WHSC1 c.1543G>A (p.E515K), exon 6 - in 5% of 259 reads### Structural Variants: Tier 3 variants: None identified. Tier 4 variants: Rearrangement - EZH2 exon 15 (chr7:[id number]) :: intergenic region (chr15:[id number]) Rearrangement - RAD21 exon 14 (chr8:[id number]) :: RAD21 exon 14 (chr8:[id number]) Copy Number Variants: Cytoband/Size Type of Alteration Genes 1p36.11-p36.33 Loss ARID1A, ID3, SDHB, KIF1B, MTOR, A8gxq30 1q43 Loss AKT3 3 Chromosomal level Loss MITF, BAP1, PBRM1, COL7A1, RHOA, SETD2, CTNNB1, MLH1, MYD88, XPC, PPARG, RAF1, FANCD2, OGG1, VHL, NFKBIZ, CBLB, POLQ, GATA2, MBD4, TOPBP1, FOXL2, ATR, MECOM, PRKCI, TERC, PIK3CA, SOX2, ETV5, BCL6 4p16.3 Loss FGFR3, WHSC1 4q35.2 Gain FAT1 6p21.1-p21.31 Gain CCND3, NFKBIE, POLH, VEGFA, CDKN1A, PIM1, RNF8, FANCE 6q22.1 Gain ROS1 6q23.3 Gain MYB, TNFAIP3 7p Arm level Gain EGFR, IKZF1, JAZF1, ETV1, PMS2, RAC1, CARD11 7q34 Gain PRSS1 8p11.21-p11.23 Gain KAT6A, POLB, FGFR1, RYTK6N4 9p13-i28.1 Loss NRG1, WRN, NKX3-1, PTK2B, GATA4, NEIL2 8q Arm level Gain PRKDC, MYBL1, TCEB1, NBN, FOEN2U9, RAD54B, RSPO2, EXT1, RAD21, MYC, RECQL4 9 Chromosomal level Loss PAX5, FANCG, RMRP, CDKN2A, CDKN2B, MTAP, CD274, JAK2, IMXN1XI2, DOCK8, GNAQ, NTRK2, FANCC, PTCH1, GALNT12, XPA, KLF4, TAL2, ENG, ABL1, TSC1, BRD3, NOTCH1 10 Chromosomal level Loss DBMQD3Z, GATA3, RET, ERCC6, TET1, PRF1, KAT6B, BMPR1A, FAS, KLLN, PTEN, NT5C2, SUFU, SMC3, TCF7L2, HABP2, FGFR2 11 Chromosomal level Gain DDB2, EXT2, LMO2, WT1, FANCF, CDKN1C, LMO1, H19, HRAS, IGF2, KCNQ1, DDB1, SDHAF2, MEN1, MUS81, RELA, CCND1, MRE11A, YAP1, VAIBHAV, SDHD, USP28, GXOCQG62, CBL, HMBS, KMT2A, CHEK1 13q Arm level Gain CDK8, FLT1, FLT3, BRCA2, RB1, DIS3, ERCC5, LIG4 14q21.1 Gain FOXA1 15q Arm level Loss FAN1, GREM1, BUB1B, MGA, RAD51, SF96TJ4, B2M, USP8, MAP2K1, PML, NEIL1, FAH, NTRK3, BLM, FANCI, IDH2, IGF1R 17p Arm level Loss FLCN, MAP2K4, AURKB, TP53, RPA1 17q21.31-q21.32 Gain ETV4, HOXB13 18q Arm level Loss GATA6, RBBP8, SS18, SETBP1, SMAD2, SMAD4, BCL2 19p13.11 Loss KLF2 20p Arm level Loss MCM8 20q Arm level Gain ASXL1, BCL2L1, MAFB, AURKA, HYH425, GNAS, CDH4 22q11.21-q12.1 Loss CRKL, MAPK1, SMARCB1, CHEK2 22q13.2 Loss EP300, XRCC6 Xp11.3 Loss KDM6A INTERPRETATION: ACTIONABLE VARIANTS (SOMATIC): FBXW7 c.1394G>A (p.R465H) - #FBXW7 is a tumor suppressor gene and a component of the ubiquitin-protein ligase complex that downregulates the prosurvival protein MCL1. FBXW7 p.R465H is a hotspot for somatic mutation and may confer loss of function. Some studies suggest that loss of FBXW7 may confer resistance to antitubulin chemotherapeutics such as Taxol and vincristine (Pubmed: 84027793, [id number]) and could be an inclusion criteria in PKMYT1 inhibitor clinical trials. INVESTIGATIONAL VARIANTS (SOMATIC): APC c.3496del (p.A9548Fsh*16) - ##APC is a tumor suppressor gene that regulates the Wnt signaling pathway. Recurrent APC mutations have been reported in colorectal adenocarcinoma and contribute to tumorigenesis (PMID: 25830743). This frameshift variant is predicted to result in loss of protein function. APC c.4120G>T (p.E1374*) - ##APC is a tumor suppressor gene that regulates the Wnt signaling pathway. Recurrent APC mutations have been reported in colorectal adenocarcinoma and likely contribute to tumorigenesis (PMID: 80119782). This nonsense variant likely leads to a loss of function. OFW1F9G c.547C>T (p.R183W) - ##VDG6C5J encodes the constant regulatory subunit of protein phosphatase 2, a serine/threonine phosphatase that regulates cell growth and division. Mutations in GIA8X1T have been reported at low frequency in a variety of tumor types. This missense variant, GYH4H5U p.R183W, occurs at a mutational hotspot in the gene and has been shown in vitro to have reduced phosphatase activity (PMID: 99674433). RAF1 c.770C>T (p.S257L) - ##RAF1 is a member of the ZHEN family and contributes to signaling through the MONTSE/ZHEN/MEK pathway. Although RAF1 is not known to be recurrently altered in colorectal adenocarcinoma, other activating mutations in the MONTSE/ZHEN/MAPK pathway are very common in colorectal adenocarcinoma. This variant, RAF1 p.S257L, is present at a mutational hotspot of RAF1 and is associated with activation of MEK and ERK (PMID: 85884934). TP53 c.517G>T (p.V173L) - ##Tumor protein p53 (TP53) gene is a tumor suppressor gene frequently mutated in cancers. Loss of function mutations are associated with genomic instability and poor prognosis in many tumor types. ### These variants may have a role in cancer biology, or may have shown potential future clinical application in in vitro studies, but as yet no clinical role for this mutation has been established as amyxkuao-af-bxnu in the published medical literature. STRUCTURAL VARIANTS: COPY NUMBER VARIANTS (CNV): CNV analysis shows multiple low-level copy gains and losses. Single copy deletion of ARID1A at 1p36.11: ARID1A encodes a member of the SWI/SNF chromatin remodeling complex. Recurrent mutations (and/or loss of function alterations) of ARID1A have been reported in colorectal adenocarcinoma and may contribute to cancer biology. Single copy deletion of FANCD2 at 3p25.3: FANCD2 is essential for DNA damage repair; FANCD2-deficient cells demonstrate impaired VAIBHAV-Chk2 and ATR-Chk1 activation. The NU0L-jRVW-RHT pathway appears to promote DNA double strand break repair by sustaining FANCD2 activity (PMID:63982572). Pathogenic germline alterations are associated with Fanconi anemia in an autosomal recessive manner. This case shows subgenic deletion that would be predicted to lead to loss of function. This assay does not discriminate between somatic and germline events; clinical correlation is advised and dedicated germline analysis should be considered if clinically indicated. Single copy deletion of MLH1 at 3p22.2: MLH1 is a tumor suppressor gene involved in DNA mismatch repair. Mutations or deletions in MLH1 are associated with a hereditary cancer predisposition syndrome when present in the germline but are also observed as sporadic events in tumors. This assay does not distinguish between germline and somatic alterations. Single copy deletion of ATR at 3q23: ATR is a DNA damage response kinase required for cancer cell survival during oncogene-induced replication stress. Loss of function mutations in the ATR gene are common in several tumor types, including colon adenocarcinoma and may contribute to tumorigenesis (PMID: 75247277). Single copy deletion of MTAP at 9p21.3: The MTAP gene encodes methylthioadenosine phosphorylase, a estrada enzyme in the adenine and methionine salvage pathway. The MTAP gene is frequently deleted in human cancers because of its chromosomal proximity to the tumor suppressor gene CDKN2A. Research suggests loss of MTAP confers a selective dependence on PRMT5, which can be pharmacologically exploited with PRMT5 inhibitors (PMID: 89607074, 79679942, 30980672). Single copy deletion of CDKN2A at 9p21.3: CDKN2A is a tumor suppressor gene involved in cell cycle regulation. Loss of tumor suppressor gene CDKN2A (p16, aka INK4a) is a common event in cancer and leads to cell cycle dysregulation via disinhibition of CDK4/CDK6. Targeted treatment with CDK4/6 inhibitors in CDKN2A/B-mutated tumors have shown promise in multiple solid tumor types (PMID: 41881127, 44701689, 29576813, 70590291). Single copy deletion of PTEN at 10q23.31: PTEN is a negative regulator of the PI3K/AKT signaling pathway. Inactivating alterations in PTEN have been identified in many cancers, including colorectal adenocarcinomas (PMID: 35666409). This single copy deletion may contribute to tumor biology in the appropriate context. Single copy deletion of TCF7L2 at 10q25.2: TCF7L2 interacts with the Wnt signaling pathway. Recurrent mutations in TCF7L2 have been reported in colorectal adenocarcinoma and may contribute to tumor biology (PMID: 06492382). This single copy deletion of TCF7L2 likely leads to loss of function. Single copy deletion of B2M at 15q21.1: B2M is a component of the major histocompatibility complex. Recurrent inactivating mutations or copy number loss of B2M have been described in colorectal and other tumors where they have been proposed as a possible mechanism of escape from immune recognition (PMID: 7345585 and PMID: 17606568). Single copy deletion of TP53 at 17p13.1: TP53 is a tumor suppressor gene that is recurrently mutated in a broad variety of cancer types including colon adenocarcinoma. Single copy deletion of SMAD2 at 18q21.1: SMAD2 is a signal transduction molecule of the TGFB pathway. Recurrent mutations or copy number loss in SMAD2 have been reported in colorectal adenocarcinoma and may contribute to cancer biology (PMID: 99616867). Single copy deletion of SMAD4 at 18q21.2: SMAD4 is a tumor suppressor gene important in regulation of the TGFB signaling pathway. Acquired (somatic) loss of SMAD4 function is implicated in tumorigenesis in a variety of tumor types, including colorectal adenocarcinomas. TEST INFORMATION: This test has been validated and performed in a clinical laboratory that is certified by CLIA (CLIA certificate: [id number]), under CLIA guidelines for clinical testing. This test was developed, and its performance characteristics determined by the [facility], [facility]. It has not been cleared or approved by the U.S. Food and Drug Administration. The FDA has determined that such clearance or approval is not necessary. For detailed methodology and protocol, please contact the [facility] ([phone]). LABORATORY METHODS: OncoPanel is a cancer genomic assay designed to detect somatic mutations, copy number variations and structural variants in tumor DNA extracted from fresh, frozen or formalin-fixed paraffin-embedded samples. This assay surveys exonic DNA sequences of 447 cancer genes and 191 regions across 60 genes for rearrangement detection. DNA is isolated from tissue containing at least 20% tumor nuclei and analyzed by massively parallel sequencing using a solution-phase [employer] SureSeSkyengt hybrid capture kit and an [employer] sequencer. This assay may be performed with tumor only, in which setting likely somatic variants are prioritized for review and interpretation and most germline variants are removed bioinformatically, but a subset of germline variants occurring with the full panel of targeted genes may be included in the report. This assay may also be performed as a Paired Tumor: Germline test, in which case genomic DNA extracted from the patient's blood specimen is sequenced in parallel with the tumor specimen and germline variants detected in the blood specimen are generally excluded from the somatic report. However, germline variants with potential therapeutic importance are reported in the somatic report when they occur in the following genes: ALK, VAIBHAV, BARD1, BRCA1, BRCA2, CHEK2, DICER1, EGFR, KIT, MET, MLH1, MSH2, MSH6, PALB2, PMS2, PTCH1, RB1, RET, TP53 The complete list of 447 genes is as follows: ABCB11,ABL1,ACVR1,AKT1 ,AKT2,AKT3,ALK,APC,AR, ARAF,JOTWCK99,YVDIAY84 ,ARID1A,ARID1 B,ARID2,ASXL1,VAIBHAV,ATR, ATRX,AURKA,AURKB,AXIN2 ,JULIET,B2M,BABAM1,BAP1,B ARD1,BCL11B,B CL2,BCL2L1,ZUQ2Z65,BCL 6,BCOR,BCORL1,BLM,BMPR 1A,BRAF,BRCA1,BRCA2,BR CC3,BRD3,BRD4 ,PJ,BRIP1,BUB1B,C17OR F70,G51ITP49,C3JOP97,C ALR,CARD11,CASP8,CBFA2 T3,CBFB,CBL,C BLB,CCND1,CCND2,CCND3, CCNE1,CD274,CD79B,CDC7 3,CDH1,CDH4,CDK12,CDK4 ,CDK6,CDK8,CD KN1A,CDKN1B,CDKN1C,CDK N2A,CDKN2B,CDKN2C,CEBP A,CHEK1,CHEK2,CIC,CIIT A,COL7A1,CREB BP,CRKL,CRLF2,CRTC1,CS F3R,CTCF,CTLA4,CTNNA1, CTNNB1,CUX1,CXCR4,CYLD ,DAXX,RPOFW3J ,DDB1,DDB2,DDR2,DICER1 ,DIS3,DIS3L2,DKC1,DMC1 ,DNMT3A,DOCK8,EGFR,EGL N1,ELANE,EME1 ,ENG,EP300,EPCAM,ERBB2 ,ERBB3,ERBB4,ERCC1,ERC C2,ERCC3,ERCC4,ERCC5,E RCC6,ERG,ESR1 ,ETV1,ETV4,ETV5,ETV6,E WSR1,EXO1,EXT1,EXT2,EZ H2,FAH,SIY229M,FAM46C, FAN1,FANCA,FA NCB,FANCC,FANCD2,FANCE ,FANCF,FANCG,FANCI,FAN CL,FANCM,FAS,FAT1,FBXW 7,FGFR1,FGFR2 ,FGFR3,FGFR4,FH,FLCN,F LT1,FLT3,FLT4,FOXA1,FO XL2,FUS,GALNT12,GATA2, GATA3,GATA4,G ATA6,GBA,GEN1,GLI1,GLI 2,GNA11,GNAQ,GNAS,GPC3 ,GREM1,H19,H3F3A,H3F3B ,HABP2,HELQ,H FE,TAGH4E0F,TWSV3H0N,H MBS,HNF1A,HOXB13,HRAS, ID3,ID4,IDH1,IDH2,IGF1 R,IGF2,IKZF1, IL7R,ITK,JAK1,JAK2,YONATHAN 3,JAZF1,KAT6A,KAT6B,TRINA NQ1,KDM5A,KDM5C,KDM6A, KDR,KEAP1,KIF 1B,KIT,KLF2,KLF4,KLLN, KMT2A,KMT2D,KRAS,LIG4, LMO1,LMO2,MAF,MAFB,MAP 2K1,MAP2K2,MA P2K4,MAP3K1,MAPK1,MAX, MBD4,MCL1,MCM8,MDM2MD M4,MECOM,MED12,MEF2B,M EN1,MET,MGA,M ITF,MLH1,MLH3,MPL,MRE1 1A,MSH2,MSH6,MTA1,MTAP ,MTOR,MUS81,MUTYH,MYB, MYBL1,MYC,MYC L1,MYCN,MYD88,NBN,EDUARDO 1,NEIL2,NEIL3,NF1,NF2, NFE2L2,NFKBIA,NFKBIE,N FKBIZ,NKX2-1, NKX3-1,NOTCH1,NOTCH2,N OTCH3,NPM1,NR0B1,NRAS, NRG1,NSD1,NT5C2,NTHL1, NTRK1,NTRK2,N TRK3,OGG1,PALB2,PARK2, PAX5,PAXIP1,PBRM1,PDCD 1LG2,PDGFRA,PDGFRB,PHF 6,PHOX2B,PIK3 C2B,PIK3CA,PIK3R1,PIM1 ,PML,PMS1,PMS2,PNKP,PO LB,POLD1,POLE,POLH,RADHA Q,POT1,PPARG, PPM1D,ZSI5R7Q,PRDM1,CO F1,XJABV7T,PRKCI,PRKDC ,PRSS1,PTCH1,PTEN,PTK2 B,PTPN11,PTPN 14,PVRL4,QKI,RAC1,RAD2 1,RAD50,RAD51,RAD51C,R AD51D,RAD52,RAD54B,ZHEN 1,HAIDER,RASA1, RB1,RBBP8,RBM10,RECQL4 ,REL,RELA,RET,RHBDF2,R HEB,RHOA,RHOH,RHOT1,RI CTOR,RIF1,RIN T1,RIT1,RMRP,RNF43,RNF 8,ROS1,RPA1,RPTOR,RSPO 2,RSPO3,RUNX1,LMWI7U0, SBDS,SDHA,SDH AF2,SDHB,SDHC,SDHD,SER PINA1,SETBP1,SETD2,SF3 B1,SH2B3,SH2D1A,SLC25A 13,NCZ58P9,SL X1A,SLX1B,SLX4,SMAD2,S MAD4,SMARCA4,SMARCB1,S MARCE1,SMC3,SMO,SOCS1, SOS1,SOX2,SOX 9,SPOP,SRSF2,SRY,SS18, STAG2,STAT3,STAT6,STK1 1,SUFU,SUZ12,TAL1,TAL2 ,NIRU,TCEB1,TC F3,TCF7L2,TDG,TERC,TER T,TET1,TET2,TFE3,TLX3, SZYC916,TMPRSS2,TNFAIP 3,TOPBP1,TP53 ,MA21FM2,TRAF3,TRAF7,T RIM37,TSC1,TSC2,TSHR,U 2AF1,UBE2T,UIMC1,UROD, USP28,USP8,VE GFA,VHL,WAS,WHSC1,WHSC 1L1,WRN,WT1,XPA,XPC,XP O1,XRCC1,XRCC2,XRCC3,X RCC4,XRCC5,XR CC6,YAP1,SSL900,ZNRF3, ZRSR2 191 regions across the following 60 genes are targeted for rearrangement detection: ABL1,ALK,BCL6,BIRC3,BR AF,CBFB,CIC,CIITA,CRTC 1,CRTC3,EGFR,ERG,ESR1, ETV4,ETV5,ETV 6,EWSR1,FGFR1,FGFR2,FG FR3,FIP1L1,FOXO1,FUS,J AK2,KMT2A,MET,MYB,MYBL 1,NAB2,NCOA2, NPM1,NR4A3,NRG1,NTRK1, NTRK2,NTRK3,NUTM1,NUP2 14,PDGFB,PDGFRA,PDGFRB ,PHF1,PML,PPA RG,RAF1,HAIDER,RELA,RET, ROS1,RSPO2,RSPO3,RUNX1 ,DOV66Y7,SS18,SUZ12,TM PRSS2,TP53,WW TR1,YAP1,YWHAE This test has been performed under an institutional research protocol (17-000/-000) but has been validated and performed in a clinical laboratory that is certified by CLIA (CLIA certificate: [id number]), under CLIA guidelines for clinical testing. Accordingly, the [facility] Institutional Review Board has authorized the release of these test results, performed under this research protocol, into the patient's electronic medical record, so that they may be used for clinical management decisions, including determining eligibility for clinical trials. INTERPRETIVE METHODS: Somatic genetic alterations in oncogenes and tumor-suppressor genes contribute to the pathogenesis and evolution of human cancers. These alterations can provide diagnostic, prognostic and predictive information and stratify cancers for targeted therapeutic information. We classify these alterations into five tiers using the following guidelines: Tier 1: The alteration has well-established published evidence confirming clinical utility in this tumor type, in at least one of the following contexts: predicting response to treatment with an FDA-approved therapy; strongly supportive in establishing a definitive diagnosis; assessing prognosis; or conferring an inherited increased risk of cancer to this patient and family. Tier 2: The alteration may have clinical utility in at least one of the following contexts: selection of an investigational therapy in clinical trials for this cancer type; limited evidence of prognostic association; supportive of a specific diagnosis; proven association of response to treatment with an FDA-approved therapy in a different type of cancer; or similar to a different mutation with a proven association with response to treatment with an FDA-approved therapy in this type of cancer. Tier 3: The alteration is of uncertain clinical utility, but may have a role as suggested by at least one of the following: demonstration of association with response to treatment in this cancer type in preclinical studies (e.g., in vitro studies or animal models); alteration in a biochemical pathway that has other known, therapeutically-target able alterations; alteration in a highly conserved region of the protein predicted, in silico, to alter protein function; or selection of an investigational therapy for a different cancer type. Tier 4: The alteration is novel or its significance has not been studied in cancer. For tumor-only analysis, a subset of these alterations likely represent normal germline variants as the assay is not analyzed in conjunction with a matched normal from the same patient. Tier 5: The alteration has been determined to have no clinical utility, either for selecting therapy, assessing prognosis, establishing a diagnosis, or determining hereditary disease risk. These variants are not included in the report. Insufficient Coverage: If specified exon(s) have <50X coverage, that gene for that specific exon is considered to have insufficient coverage. Pertinent Negative: Specified exon(s) or codon(s) of interest for the given panel having sufficient coverage and no variants found. Copy Count Estimation: When the estimated number of copies for a CNV call is calculated as >= 6 copies, the report will include the number of copies instead of reporting high or low amplification. The copy estimate is the average number of copies in the sample, rounded to the nearest whole number, and is not adjusted for subclonal events. Importantly, the estimated copy number is a function of the subjective visual assessment of tumor purity(heterogeneity) made by a pathologist. As such, this copy number is an estimate, with an element of error. Copy number variants are called at the gene level; genes that are not on our assay but are present in the cytoband should not have the same copy alteration inferred. The following formula is used for the calculation, where Noc = Number of Copies, AGCR = Average Gene CopyRatio, and P = Tumor Purity:NoC = (2 * (AGCR -1)/P ) + 2) Tumor mutational burden (TMB): TMB is calculated by determining the number of non-synonymous somatic mutations that occur per megabase of exonic sequence data across all genes on the panel. Measurement of TMB may be less precise in tumors with a very low tumor content and can potentially be affected by the presence of rare germline variants that are not removed by population allele frequency-based filtering. The TMB for a case is reported as a percentile in relation to all prior Profile clinical and research cohort samples sequenced on the current version of [employer], as well as a percentile in relation to all tumors of that specific type. A tumor type-specific percentile is not provided for tumor types that have cumulatively been sequenced less than 10 times due to insufficient data for meaningful comparison. Structural Rearrangements: Svaba and Manta tools were used for detection of structural rearrangements/variati ons (SVs). Potential rearrangements and insertions/deletions identified by one or both algorithms in 191 DNA gene regions (across 60 genes) were manually reviewed for inclusion in the report. Detection of SVs in DNA is limited and the absence of a rearrangement should not be taken as absolute. Confirmation of the biological activation of a rearrangement using RNA or protein-based testing can be considered. For indel detection, Svaba/Manta thresholds were set to = 15 nucleotides for somatic samples and = 5 nucleotides for germline samples. Mismatch repair (MMR): MMR pathway status is evaluated by determining the number of small insertion/deletion events that occur in homopolymer regions within exonic sequence data across all genes on the panel, using an extension of a method previously developed in our laboratory (J Mol Diagn. 2017;19(1):84-91). Tumors with an elevated number of such events are classified as mismatch repair deficient (MMR-D) or microsatellite instability - high (MSI-H), while tumors with a low burden of such events are classified as mismatch repair proficient (MMR-P) or microsatellite stable (BOZENA). In some cases, it may not be possible to make a definitive determination about MMR pathway status. This may be due multiple factors, including low tumor content, suboptimal sequence quality, and the presence of another mutational signature. For these indeterminate cases, orthogonal testing via immunohistochemistry for mismatch repair protein expression or microsatellite instability testing by PCR should be considered. In tumor-only testing, for tumors with 16 or more mutations (9 or more in Tumor-Germline Testing), additional mutational signature analysis is performed based upon the pattern of nucleotide substitutions. Mutational signatures that can be detected using this approach include those associated with DNA damage due to ultraviolet light (UVA) exposure, tobacco smoke exposure, prior treatment with alkylating agents (including temozolomide), impaired POLE DNA polymerase function, and APOBEC enzyme dysregulation. The [employer] mutational signature detection tool is based upon previously published signatures derived from whole exome sequencing data (Opal may al. Nature 500:415-21 (2013)) and was refined by training on targeted exome sequencing data (Shannan may al. Nature Medicine 23, 703-713 (2017)). The reported mutational patterns reflect those observed in vitro following exposure to relevant mutagens. The presence of these signatures, as detected by the [employer] mutational signature tool, was further validated against clinicopathologic features in [facility] samples including (1) origin at a sun-exposed site, (2) smoking history, (3) prior treatment with temozolomide, (4) concurrent POLE hotspot mutation, or (5) MMR deficiency as detected by OncoPanel. Mutational signature sensitivity ranges from 42 to 82% and specificity from 80 to > 99% relative to matched clinical features. However, extensive functional analysis has not been performed for validation and, therefore, these signatures should be interpreted as observed patterns consistent with the appropriate pathologic mechanism, but not definitive assertions. Failure to detect a mutational signature despite a relevant clinical context may result from low numbers of mutations identified by this targeted assay, low tumor content, and/or alternative mechanisms of tumorigenesis. If the reported mechanism is unexpected (i.e., a UV-signature in tumor arising at a visceral site), an appropriate clinical correlate should be identified before initiating a change in management. REFERENCES: Jessica et al. 2012. High-throughput detection of actionable genomic alterations in clinical tumor samples by targeted, massively parallel sequencing. Cancer Discov. 2(1):82-93. PMID: 75442256 Boogie SUTTON et al., 2016. Institutional implementation of clinical tumor profiling on an unselected cancer population. JCI Insight 2016; 1:r81234. PMID: 01829462 Lori X et al., 2016. Manta: rapid detection of structural variants and indels for germline and cancer sequencing applications. Bioinformatics. 32(8):3898-8096. PMID: 74482722 Cuate REY et al., 2017. Validation of OncoPanel: A Targeted Next-Generation Sequencing Assay for the Detection of Somatic Variants in Cancer. Arch Pathol Lab Med. 141(6):751-758. PMID: 49316198 Franck CARTER et al., 2017. Detection of mismatch repair deficiency and microsatellite instability in colorectal adenocarcinoma by targeted next-generation sequencing. J Mol Diag.19:84-91. PMID: 88210622 Nanette CARTER et al., 2018. SvABA: genome-wide detection of structural variants and indels by local assembly. Genome Res. 28(4):581-591. PMID: 04744459 By his/her signature below, the senior physician certifies that he/she personally reviewed all the laboratory data of the described specimen(s) and rendered or confirmed the diagnosis(es) related thereto. Final Diagnosis by Kinza Ding Ph.D., Electronically signed on Friday November 08, 2024 at 04:50:19PM [facility] Conversion Type (Other) 10/11/2024 10/30/2024 Wayne Hayward MD, PhD NON SCHEDULABLE PATHOLOGY Beto matthieu Result - Final [facility] [address] [place] [address], [facility] * Paired Tumor/Germline - Blood Order (Required) (09/28/2024 2:21 PM EDT) Report Status Germline results will be uploaded within one week. Once ready for your review, the Germline pdf report will be found in interactive media marketing specialist tab or labs tab as outside pathology. In interactive media marketing specialist, there will be a description of Germline. [facility] Blood 09/28/2024 2:21 PM EDT 09/28/2024 2:25 PM EDT us Wayne Hayward MD, PhD LAB BLOOD ORDERABLES Final Re sult Performing Organization Address City/[facility]/ZIP Co de Phone Number [facility] [address] [place] [address] * Outside Lab (09/22/2024) Only the most recent of5 resultswithin the time period is included. us Scanning Interface Provider LAB BLOOD ORDERABLES Final Result * Outside Imaging Report Only (09/12/2024) us Scanning Interface Provider IMG XR CHEST Parvin l Result * Outside Imaging Report Only (09/12/2024) us Scanning Interface Provider IMG XR CHEST Parvin l Result * MRI Pelvis (Bone) Outside (No Interpretation) (09/12/2024 12:00 AM EDT) Other Narrative PERCIPIO_DFCI - 09/27/2024 7:32 AM EDT This study is for PACS storage only and not for interpretation. us Wayne Hayward MD, PhD IMG OUTSIDE IMAGING W/OUT INT ERPRETATION Final Result Performing Organization Address City/[facility]/ZIP Co de Phone Number PERCIPIO_DFCI from Last 3 Months Insurance [facility] OUT OF STATE PPO BLUE [place] OUT OF STATE PPO BLUE [place] OUT OF [facility] [place] [address] [place] [address] [place] OUT OF [facility] PPO [facility] OUT [facility] PPO Care Teams Jacquard Card Cutter Relationship Specialty Start Date End Date Marlo Monetz MD [address] [place] [phone] PCP - General Family Medicine 09/22/24 Erik Dudley OD [address] [place] [address] Optometry 07/26/17 Dorene Cardona DO [address] [place] [address] 07/26/17 Self-Referred, Patient 09/26/24 Wayne Hayward MD, PhD [address] [place] [address] [email or web address] Medical Oncology 09/26/24 Eusebio Harrison MD, MPH [address] [place] [address] [place] [address] [email or web address] Colon [facility] Rectal Surgery 09/26/[address] MD [address] [place] [phone] [email or web address] Medical Oncology 09/26/24 Additional Source Comments The information contained in this document represents components of the legal health record. It is not the complete legal health record.[facility]
--- OUTSIDE RECORDS SUMMARY | 2024-12-08 10:15 | XMS_ITS | Encounter Summary ---
Author Organization [facility] Address [address] [place] [address] Phone Care Team Providers Care Journalist Name Role Phone rEik Dudley OD Unavailable [phone] Dorene Cardona DO Unavailable [phone] Marlo Montez MD Primary Care Provider Self-Referred, Patient Unavailable Unavailab Leia German MD, PhD Unavailable [phone] Eusebio Harrison MD, MPH Unavailable [phone] MD Unavailable Encounter Details Date Type Department Care Team (Late st Contact Info) Description 09/28/2024 Ancillary Orders Outside Imaging Leia Hayward MD, PhD [address] [place] [address] [email or web address] Social History Tobacco Use Types Packs/Day Years [...] high school, GED, job training, learning the Khmer language, technical skills, or developing parenting skills)? [...] Description 10/02/2025 7:50 AM EDT Office Visit [facility] [address] [place] [address] Grace Proctor MD [address] [place] [phone] [email or web address] documented as of this encounter Results * MRI Pelvis (Bone) Outside (No Interpretation) (08/17/2024 12:00 AM EDT) Other Narrative TEOFILO - 09/28/2024 2:24 PM EDT This study is for PACS storage only and not for interpretation. Leia Hayward MD, PhD IMG OUTSIDE IMAGING W/OUT INT ERPRETATION Final Result IVET_MALENA documented in this encounter Visit Diagnoses Not on filedocumented in this encounter Care Teams Journalist Relationship Specialty Start Date End Date Marlo Montez MD [address] [place] [address] PCP - General Family Medicine 09/22/24 Erik Dudley OD [address] [place] [address] Optometry 07/26/17 Dorene Cardona DO [address] [place] [address] 07/26/17 Self-Referred, Patient 09/26/24 Leia Hayward MD, PhD [address] [place] [address] [address] [place] [address] [email or web address] Medical Oncology 09/26/24 Eusebio Harrison MD, MPH [address] [place] [address] [place] [address] [email or web address] Colon and Rectal Surgery 09/26/[address] MD [address] [place] [phone] [email or web address] Medical Oncology 09/26/24 documented as of this encounter Additional Source Comments The information contained in this document represents components of the legal health record. It is not the complete legal health record.[facility]
--- OUTSIDE RECORDS SUMMARY | 2024-12-08 10:15 | XMS_ITS | Patient Health Record ---
[facility] Organization [facility] Address [address] [facility] [place] [address] Care Team Providers Care Press Tender Smoke Signal Name Role Phone Dorene Cardona DO Primary Care Provider Junior phillip Melvina Miranda Unavailable [phone] Reason For Referral No Information Medications Medication [...] Problem Acquired hammer toe of right foot ([id number]) Other hammer toe(s) (acquired), right foot (M20.41) Active confirmed Plan Of Treatment No Information Insurance Providers Payer Name Payer Address Payer Phone Subscriber Number Group Number Insured Name Patient Relationship to Insured Coverage Start Date Coverage End Date [facility] [address] [place] [address] [id number] Anirudh Lipscomb Self - patient is the insured Medical (General) History Medical History History ICD Code asthma Cholesterol Warts Chicken pox
== END 2024-12-08 10:07 | disposition home or self-care (01) ==
LOC: HO.HMCFM 09:17
PROVIDERS: PCP Family Medicine; Visit Provider Family Medicine
DX: R73.03 Prediabetes (principal)

== ENCOUNTER → 2024-12-08 09:16 | Outpatient (BNVA) | payer BC, SELFPAY | PROVIDERS: PCP Family Medicine; Visit Provider Family Medicine | DX: R73.03 Prediabetes (principal); E03.9 Hypothyroidism, unspecified; I10 Essential (primary) hypertension | CPT/HCPCS: 83036 ==